=== PATIENT | female | born 1990 | race Caucasian/White ===

== ENCOUNTER → 2017-08-10 10:35 | Outpatient (CLI) | payer BC, SELFPAY ==
[2017-08-10 14:08] LABS: Hematocrit 32.5 % (37-47); Hemoglobin 10.4 g/dl (12.0-15.0); Mean Corpuscular Hgb 27.9 pg (27.0-32.0); Mean Corpuscular Volume 87.1 fL (81-99); Mean Platelet Vol. 10.6 fl (6.2-12.0); Platelet Count 244 K/mm3 (150-450); RBC Distribution Width CV 14.1 % (11.6-14.6); RBC Distribution Width SD 44.4 fl (35.1-43.9); Red Blood Count 3.73 M/mm3 (4.2-5.4); White Blood Count 13.1 K/mm3 (4.4-11.0)
[2017-08-10 14:09] LABS: Scan Indicated on CBC? Y/N NO
[2017-08-10 14:15] LABS: Glucose Challenge Gest 1H 50g 116 mg/dL (70-140)
== END ==
PROVIDERS: Visit Provider Obstetrics & Gynecology
DX: Z34.83 Encounter for supervision of other normal pregnancy, third trimester (principal)
CPT/HCPCS: 36415; 82950; 85027

== ENCOUNTER → 2017-09-30 15:48 | Outpatient (CLI) | payer BC, SELFPAY ==
[2017-09-30 17:45] LABS: Group B Strep DNA By PCR Negative (Negative); Internal Control PASS; Probe Check PASS; Specimen Processing Control PASS
== END ==
PROVIDERS: Visit Provider Obstetrics & Gynecology
DX: Z36.85 Encounter for antenatal screening for Streptococcus B (principal)
CPT/HCPCS: 87081; 87653

== ENCOUNTER 2017-10-09 19:46 | Observation (INO) | payer BC, SELFPAY ==
[2017-10-09 19:46] VITALS: BMI 38.2
[2017-10-09] MEDS: Betamethasone/Betamethasone 30 MG/5 ML Vial 12 MG IM (19:59)
[2017-10-09] MEDS: Lactated Ringers 1,000 ML 50 ML IV (20:00)
[2017-10-09 20:13] LABS: Hematocrit 33.5 % (37-47); Hemoglobin 10.9 g/dl (12.0-15.0); Mean Corp Hgb Conc 32.5 g/gl (32-36); Mean Corpuscular Hgb 28.2 pg (27.0-32.0); Mean Corpuscular Volume 86.8 fL (81-99); Mean Platelet Vol. 10.3 fl (6.2-12.0); Platelet Count 199 K/mm3 (150-450); RBC Distribution Width CV 14.9 % (11.6-14.6); RBC Distribution Width SD 46.5 fl (35.1-43.9); Red Blood Count 3.86 M/mm3 (4.2-5.4); Scan Indicated on CBC? Y/N NO; White Blood Count 14.1 K/mm3 (4.4-11.0)
[2017-10-09] MEDS: 0.9% Saline Lock 10 ML Syringe IV (21:01)
--- NOTE | 2017-10-10 04:54 | PCM.PN.BLA ---
Progress Note LABOR PROGRESS NOTE Contractions persist. Denies leaking of fluid. AVSS GEN - NAD, AAO x 3 FHR 120, moderate variability, + accelerations, no decelerations TOCO 2-3/10 min SVE 5/70/0 posterior and moderate per RN Marlen Victor exam at 0204h A/P: 27yo @ 37wga in latent labor, Cat I FHR -BMZ x 1 given -Given early team, will continue with expectant management at this time -Maternal and statuses reassuring
--- NOTE | 2017-10-10 08:30 | PCM.PN.BLA ---
Progress Note PROGRESS NOTE Relates contractions persist with same moderate intensity as prior. AVSS GEN - NAD, AAO x 3 FHR 125, moderate variability, + accelerations, no decelerations TOCO 1-2/10 min SVE - deferred A/P: 27yo @ 37wga with contractions -Likely latent labor, cannot r/o false labor -s/p BMZ #1, given early term, continue plan for no intervention and will give BMZ #2 this evening if remains unchanged -Maternal and statuses reassuring
--- NOTE | 2017-10-10 19:23 | PCM.PN.BLA ---
Progress Note PROGRESS NOTE Patient reports some pressure. Contractions aren't any closer. AVSS GEN - NAD, AAO x 3 FHR 120, moderate variability, + accelerations, no decelerations SVE 4.5-5/70/-3 TOCO 1-2/10 min A/P: 27yo at 37 weeks gestation with false labor, Cat I FHR -SVE unchanged x 24 hours. Discussed with patient given early term and status reassuring, no indication for pitocin or amniotomy at this time. I recommend discharge to home and patient to return if rupture of membranes or increased frequency/intensity of contractions. Patient may remain at this dilation for several days. -Patient and given opportunity to ask questions and questions answered to their satisfaction -Give betamethasone #2, then d/c home. Follow up in office in 2-3 days.
[2017-10-10] MEDS: Betamethasone/Betamethasone 30 MG/5 ML Vial 12 MG IM (19:25)
--- NOTE | 2017-10-10 19:30 | NURSING ---
Dr. Denver Griffin at nurses station with RN. Plans to discharge patient home. Last dose of celestone to be given per Jimmy MARTIN.
--- NOTE | 2017-10-11 07:49 | PCM.DC.SUM ---
Discharge Date and Diagnosis Date of Admission: 10/09/17 Date of Discharge: 10/10/17 Hospital Course and Treatment Consultations 10/09/17 19:51 Consult: Anesthesia Routine Comment: Reason For Exam: LABOR Operations: None Procedures: None Summary of Care Provided: The patient is a 27 year old F 3 para 1102 admitted at 36 6/7 weeks gestation with contractions at 4-5cm for observation. She was given betamethasone IM and observed with expectant management. Her cervix remained unchanged over the rest of a 24 hour period. She was given a second dose of betamethasone and discharged from triage. Home Medications: Medications to take at Discharge Ferrous Sulfate 324 mg PO 10/09/17 Triamcinolone 0.5% Cream [Kenalog] 10/09/17 Primary Care Physician: Ricky Griffin MD [Primary Care Provider] - Medical Necessity - Tobacco Use Smoking Status: Never smoker Meaningful Use Info Meaningful Use Diagnoses (Choose all that apply): None applicable
== END 2017-10-10 19:50 | disposition home or self-care (01) ==
LOC: WPOUT 19:47 → WP 10-10 15:06
PROVIDERS: Admitting Provider Obstetrics & Gynecology; Family Provider Family Medicine; PCP Family Medicine; Visit Provider Obstetrics & Gynecology
DX: O47.1 False labor at or after 37 completed weeks of gestation (principal); Z3A.37 37 weeks gestation of pregnancy
CPT/HCPCS: 96372 ×2; 59025; 59050; 85027; 86850; 86900; J7120; A4216; J0702

== ENCOUNTER 2017-10-13 15:20 | Outpatient (CLI) | payer BC, SELFPAY ==
[2017-10-13 15:55] VITALS: BMI 37.4
--- NOTE | 2017-10-14 07:57 | OB.TRI.NOTE ---
History of Present Illness Date of Service: 10/13/17 Was patient seen by the physician?: No Reason For Visit: R/O LABOR Date of Service: 10/13/17 Final VALERIA: 10/31/17 Final VALERIA Source: US <20 weeks Gestational age: 37 Weeks and 4 Days History of Present Illness: Irregular contractions, nausea/vomitting Home Medications Medication Instructions Recorded RX: Ferrous Sulfate 324 mg PO DAILY 10/09/17 RX: Triamcinolone 0.5% Cream 10/09/17 [Kenalog] Allergies No Known Allergies Allergy (Verified 10/09/17 19:47) Physical Exam General: Alert, Oriented x3, Cooperative, No apparent distress Cardiovascular: Regular rate, Regular Rhythm Lungs: Clear to auscultation, Normal air movement Abdomen: Soft, Non Tender, Non-Distended, Gravid, Appropriate for Gestational Age Extremities:: No edema Estimated gestational size: Appropriate for gestational size Presentation: Cephalic Cervix Dilation (cm): 5 Station: -2 Effacement (%): 25 NST - FHR Rate Baby A Baseline: 140s Variability:: Moderate Accelerations:: 15 x 15 Decelerations:: None NST Reactive:: Yes FHR Category:: Category I Uterine Activity:: irregular q 6 to 10 minutes Impression/Plan No change in cervical exam over the past 3 days. Will discharge home at this point. If makes more cervical change could consider admission.
== END 2017-10-13 16:40 | disposition home or self-care (01) ==
LOC: WPOUT 15:41 → WP 15:43
PROVIDERS: Visit Provider Obstetrics & Gynecology
DX: O21.9 Vomiting of pregnancy, unspecified (principal); Z3A.37 37 weeks gestation of pregnancy
CPT/HCPCS: 59050; 99218; G0378

== ENCOUNTER 2017-10-17 17:55 | Outpatient (CLI) | payer BC, SELFPAY ==
[2017-10-17 18:02] VITALS: BMI 37.6
[2017-10-17 18:42] LABS: ROM Internal Control Test YES-OK TO RESULT pt. (Internal QC); ROM Patient Test Negative (Negative)
--- NOTE | 2017-10-18 07:04 | OB.TRI.NOTE ---
History of Present Illness Date of Service: 10/17/17 Was patient seen by the physician?: No Reason For Visit: R/O SRM Date of Service: 10/17/17 Final VALERIA: 10/31/17 Final VALERIA Source: US <20 weeks Gestational age: 38 Weeks and 1 Days History of Present Illness: R/O SROM Home Medications Medication Instructions Recorded RX: Ferrous Sulfate 324 mg PO DAILY 10/09/17 Allergies No Known Allergies Allergy (Verified 10/09/17 19:47) Physical Exam General: Alert, Oriented x3, Cooperative, No apparent distress Cardiovascular: Regular rate, Regular Rhythm Lungs: Clear to auscultation, Normal air movement Abdomen: Soft, Non Tender, Non-Distended, Gravid, Appropriate for Gestational Age Extremities:: No edema Estimated gestational size: Appropriate for gestational size Presentation: Cephalic Cervix Dilation (cm): 5 Station: -2 Effacement (%): 70 NST - FHR Rate Baby A Baseline: 140 Variability:: Moderate Accelerations:: 15 x 15 Decelerations:: None NST Reactive:: Yes, Appropriate for gestational age FHR Category:: Category I Uterine Activity:: Irregular Impression/Plan ROM + testing negative. No change in cervix over past week. F/U office.
== END 2017-10-17 19:30 | disposition home or self-care (01) ==
LOC: WPOUT 18:00 → WP 18:01
PROVIDERS: Family Provider Family Medicine; PCP Family Medicine; Visit Provider Obstetrics & Gynecology
DX: Z34.93 Encounter for supervision of normal pregnancy, unspecified, third trimester (principal)
CPT/HCPCS: 59025; 59050; 84112; 99218; G0378

== ENCOUNTER 2017-10-26 06:50 | Inpatient (IN) | payer BC, SELFPAY ==
[2017-10-26] MEDS: Lactated Ringers 1,000 ML 50 ML IV (07:30)
[2017-10-26 07:35] VITALS: BMI 38.4
[2017-10-26] MEDS: Oxytocin 30 units/NS 500 ml 30 UNITS/500 ML IV.SOLN IV (07:47)
[2017-10-26 07:54] LABS: Hemoglobin 11.1 g/dl (12.0-15.0); Mean Corp Hgb Conc 32.6 g/gl (32-36); Mean Corpuscular Volume 85.9 fL (81-99); Mean Platelet Vol. 11.4 fl (6.2-12.0); Platelet Count 176 K/mm3 (150-450); RBC Distribution Width CV 14.1 % (11.6-14.6); RBC Distribution Width SD 43.2 fl (35.1-43.9); Red Blood Count 3.96 M/mm3 (4.2-5.4); White Blood Count 12.5 K/mm3 (4.4-11.0)
[2017-10-26 07:55] LABS: Scan Indicated on CBC? Y/N NO
[2017-10-26] MEDS: Oxytocin 30 units/NS 500 ml 30 UNITS/500 ML IV.SOLN 334 UNITS IV (10:46)
--- NOTE | 2017-10-26 10:54 | PCM.OB.VAG ---
- Problem List (1) Term delivered Status: Acute (2) Term Status: Acute Vaginal Delivery Maternal Presentation: Elective Induction 39w1d ega admitted for elective induction of labor Method of Induction: Pitocin Amniotic Membrane Rupture Type: Artificial Rupture of Membrane time: 0800 Amniotic Fluid Description: Clear Final VALERIA: 11/01/17 Final VALERIA Source: US <20 weeks Gestational age: 39 Weeks and 1 Days Date of Procedure: 10/26/17 Pre-Operative Diagnosis: labor Post-Operative Diagnosis: same Surgery/ Procedure Performed: Spontaneous Vaginal Delivery Type of Anesthesia: None Description of Procedure: Cydney progressed to FD over 2 1/2 hours then pushed for about 15 minutes to deliver a live male with apgars of 8/9. There was a true knot tin the cord. Delayed cord clamping was employed. The cord was then clamped and cut. The placenta was delivered spontanouesly intact with a centrally located 3VC. The uterus contracted well. The vagina, cervix, and perineum were intact. Presentation: Vertex Placental Delivery Description: Spontaneous Placenta Disposition: [facility] Percentage of Placenta Abruption: 0 Cord Vessel Description: 3 Vessels Cord Entanglement: None Estimated Blood Loss: 400cc A gender: Male (1 minute): 8 (5 minute): 9 Episiotomy Description: None Laceration: None Medications given after delivery: IV Pitocin Complications: None
[2017-10-26] MEDS: Ibuprofen 600 MG Tablet PO (11:16)
[2017-10-26] MEDS: Oxytocin 30 units/NS 500 ml 30 UNITS/500 ML IV.SOLN 167 UNITS IV (11:17)
[2017-10-26] MEDS: 0.9% Saline Lock 10 ML Syringe IV (13:05)
[2017-10-26 14:00] VITALS: BP 116/59; PULSE 78; RESP 16; TEMP 36.9
[2017-10-26 15:48] VITALS: BP 107/53; PULSE 73; RESP 16; TEMP 37.1
[2017-10-26 20:00] VITALS: BP 123/67; PULSE 72; RESP 16; TEMP 37.2
[2017-10-26 23:30] VITALS: BP 116/63; PULSE 80; RESP 16; TEMP 37.9
[2017-10-27 04:15] VITALS: BP 116/60; PULSE 84; RESP 16; TEMP 36.7
[2017-10-27 06:11] LABS: Hematocrit 32.3 % (37-47); Hemoglobin 10.5 g/dl (12.0-15.0); Mean Corp Hgb Conc 32.5 g/gl (32-36); Mean Corpuscular Hgb 28.2 pg (27.0-32.0); Mean Corpuscular Volume 86.8 fL (81-99); Platelet Count 160 K/mm3 (150-450); RBC Distribution Width CV 14.3 % (11.6-14.6); RBC Distribution Width SD 43.2 fl (35.1-43.9); Red Blood Count 3.72 M/mm3 (4.2-5.4); White Blood Count 13.2 K/mm3 (4.4-11.0)
[2017-10-27 06:12] LABS: Scan Indicated on CBC? Y/N NO
[2017-10-27 07:28] VITALS: BP 127/70; PULSE 75; RESP 18; TEMP 36.2; O2SAT 96
--- NOTE | 2017-10-27 07:42 | PCM.PN.OB ---
Patient Problems: Active and Suspected Problems Term delivered (Acute) Term (Acute) Subjective: Feeling well. Bleeding light. Breast feeding. Objective: Afeb VSS - Physical Exam General: Alert, Oriented x3, Cooperative, No apparent distress Lungs: Clear to auscultation, Normal air movement Cardiovascular: Regular rate, Regular Rhythm Abdomen: Soft, Non Tender, Non-Distended, - - Fundus firm nontender Extremities: No edema Skin: No rashes Neurological: Neuro grossly intact Psych/Mental Status: Normal Affect Comment: Lochia light Vital Signs Temp Pulse Resp BP Pulse Ox 97.1 F L 75 18 127/70 H 96 10/27/17 07:28 10/27/17 07:28 10/27/17 07:28 10/27/17 07:28 10/27/17 07:28 Oxygen Delivery Method Room Air Weight: 223 lb 15.834 oz Body Mass Index (BMI) 38.4 Intake and Output for Last 24 Hours 10/25/17 10/26/17 10/27/17 23:59 23:59 23:59 Output Total 900 / 900 Balance -900 / -900 Laboratory Tests Past 24 Hrs 10/26/17 10/26/17 10/27/17 07:30 07:30 05:45 WBC 12.5 H 13.2 H RBC 3.96 L 3.72 L Hgb 11.1 L 10.5 L Hct 34.0 L 32.3 L MCV 85.9 86.8 MCH 28.0 28.2 MCHC 32.6 32.5 RDW 14.1 14.3 RDW Differential 43.2 43.2 Plt Count 176 160 MPV 11.4 11.0 Blood Type A POSITIVE Antibody Screen NEGATIVE Medical Necessity - Tobacco Use Smoking Status: Smoker, status unknown Assessment/Plan Active and Suspected Problems Term delivered (Acute) Term (Acute) Doing well on PP day#1. Considering discharge home today. Home going instructions and warnings given.
--- NOTE | 2017-10-27 07:47 | DCINST_ITS ---
Discharge Diet: No Restrictions Discharge Activity: Return to Normal Activity, May Drive, May Shower Return to work on:: 12/13/17 May shower in (days): 0 May resume sexual activity in: 4-6 weeks Call your doctor if your incision/area has: Sudden Increased Bleeding, Increased Pain/ Swelling, Foul Smelling Discharge Call your doctor if you observe: Fever of 101 or Higher, Inability to urinate, Inability to have a bowel movement, Using more than one pad per hour, Shortness of breath, Chest pain, Calf discomfort, Uncontrolled pain Cleanse incision/area with: Soap & Water Additional Instructions: If you experience any of the following, contact your healthcare provider. * Bleeding that soaks a pad every hour for 2 hours * Fever 100.4 or higher * Unrelieved incision or abdominal pain * Swelling, redness, discharge or bleeding from your incision or episiotomy site * Your incision begins to separate * Problems urinating (including inability to urinate or burning while urinating) . * Visual changes * Severe headache * Flu-like symptoms * Pain or redness in one of both of your breasts * Pain, warmth, tenderness or swelling in your legs, especially the calf area * Frequent nausea and vomiting * Symptoms of depression or anxiety If you experience any of the following, call 911 or go to the nearest Emergency Room. * Chest pain * Problems breathing * Seizure activity * Partial or complete paralysis of a body part, slurred speech, weakness or drooping of the face, or a sudden inability to walk or hold your balance Allergies/Adverse Reactions: Allergies No Known Allergies Allergy (Verified 10/09/17 19:47) Medications to take at Discharge Ferrous Sulfate 324 mg PO DAILY 10/09/17 Ibuprofen [Ibu] 600 mg PO Q6H PRN PRN #30 tab 10/27/17 The following prescriptions were given: Ibuprofen [Ibu] 600 mg PO Q6H PRN PRN #30 tab PRN Reason: pain or cramping Please Follow Up With: Kilo Garcia MD When: 6 weeks Primary Care Physician: Ricky Griffin MD [Primary Care Provider] - Proposed Discharge Date: 10/27/17
[2017-10-27 14:15] VITALS: BP 112/58; PULSE 82; RESP 16; TEMP 36.8
[2017-10-27 19:30] VITALS: BP 112/64; PULSE 82; RESP 18; TEMP 36.6; O2SAT 98
[2017-10-28 02:15] VITALS: BP 116/68; PULSE 69; RESP 18; TEMP 36.6; O2SAT 98
--- NOTE | 2017-10-28 08:16 | PCM.DC.SUM ---
Discharge Date and Diagnosis - Problem List Patient Problems: Active and Suspected Problems Term delivered (Acute) Term (Acute) Date of Admission: 10/26/17 Date of Discharge: 10/28/17 - Primary Discharge Diagnosis Active and Suspected Problems Term delivered (Acute) Term (Acute) Hospital Course and Treatment Consultations 10/26/17 07:39 Consult: Anesthesia Routine Comment: Reason For Exam: LABOR Operations: None Procedures: - - Pitocin induction, Summary of Care Provided: The patient is a 27 year old F [admitted for elective induction of labor at 39w2d ega. Pitocin induction resulted in spontaneous vaginal delivery of a live male without complication. Post course unremarkable. Was discharged on PP day#2.] Discharge Diet: No Restrictions Discharge Activity: Return to Normal Activity, May Drive, May Shower Return to work on:: 12/13/17 May shower in (days): 0 May resume sexual activity in: 4-6 weeks Call your doctor if your incision/area has: Sudden Increased Bleeding, Increased Pain/ Swelling, Foul Smelling Discharge Call your doctor if you observe: Fever of 101 or Higher, Inability to urinate, Inability to have a bowel movement, Using more than one pad per hour, Shortness of breath, Chest pain, Calf discomfort, Uncontrolled pain Cleanse incision/area with: Soap & Water Home Medications: Medications to take at Discharge Ferrous Sulfate 324 mg PO DAILY 10/09/17 Ibuprofen [Ibu] 600 mg PO Q6H PRN PRN #30 tab 10/27/17 Following Prescrptions Were Given to Patient: Ibuprofen [Ibu] 600 mg PO Q6H PRN PRN #30 tab PRN Reason: pain or cramping Primary Care Physician: Ricky Griffin MD [Primary Care Provider] - Please Follow Up With: Kilo Garcia MD When: 6 weeks Disposition: Home Minutes spent on discharge:: 15 Patient Condition:: Good Medical Necessity - Tobacco Use Smoking Status: Smoker, status unknown Meaningful Use Info Meaningful Use Diagnoses (Choose all that apply): None applicable
--- NOTE | 2017-10-28 08:19 | PCM.PN.OB ---
Patient Problems: Active and Suspected Problems Term delivered (Acute) Term (Acute) Subjective: Doing well no specific complaints. Breast feeding. Bleeding light. Objective: Afeb VSS - Physical Exam General: Alert, Oriented x3, Cooperative, No apparent distress Lungs: Clear to auscultation, Normal air movement Cardiovascular: Regular rate, Regular Rhythm Abdomen: Soft, Non Tender, Non-Distended, - - Fundus firm nontender Extremities: No edema, No Calf Tenderness Skin: No rashes Neurological: Neuro grossly intact Psych/Mental Status: Normal Affect Comment: lochia light Vital Signs Temp Pulse Resp BP Pulse Ox 97.8 F 69 18 116/68 98 10/28/17 02:15 10/28/17 02:15 10/28/17 02:15 10/28/17 02:15 10/28/17 02:15 Oxygen Delivery Method Room Air Weight: 223 lb 15.834 oz Body Mass Index (BMI) 38.4 Intake and Output for Last 24 Hours 10/26/17 10/27/17 10/28/17 23:59 23:59 23:59 Output Total 900 / 900 Balance -900 / -900 Medical Necessity - Tobacco Use Smoking Status: Smoker, status unknown Assessment/Plan Active and Suspected Problems Term delivered (Acute) Term (Acute) Discharged today. May stay in house as border if baby held for elevated bilirubin levels. Home going instructions and warnings given.
[2017-10-28 09:45] VITALS: BP 124/70; PULSE 72; RESP 16; TEMP 36.4; O2SAT 97
[2017-10-28 15:42] VITALS: BP 134/89; PULSE 88; RESP 18; TEMP 36.9; O2SAT 98
== END 2017-10-28 14:55 | disposition home or self-care (01) | DRG 775 ==
PROVIDERS: Admitting Provider Obstetrics & Gynecology; Family Provider Family Medicine; PCP Family Medicine; Visit Provider Obstetrics & Gynecology
DX: O75.89 Other specified complications of labor and delivery (principal); Z37.0 Single live birth; Z3A.39 39 weeks gestation of pregnancy
CPT/HCPCS: 59025; 59050; 85027; 86850; 86900; 99218; J7120; A4216; G0378

== ENCOUNTER → 2018-03-17 14:42 | Outpatient (CLI) | payer BC, SELFPAY ==
[2018-03-25 08:33] LABS: HPV HC, High Risk Negative (Negative)
[2018-03-25 08:34] LABS: HPV Reflexed? NOT INDICATED
== END ==
PROVIDERS: Visit Provider Obstetrics & Gynecology
DX: Z12.4 Encounter for screening for malignant neoplasm of cervix (principal)
CPT/HCPCS: 88175; G0145

== ENCOUNTER 2018-05-27 07:28 | Emergency (ER) | payer BC, SELFPAY ==
[2018-05-27 07:29] VITALS: BP 156/96; PULSE 73; RESP 18; TEMP 36.4; O2SAT 99; BMI 35.2
--- NOTE | 2018-05-27 07:46 | CT_ITS ---
STUDY: CT ABDOMEN AND PELVIS WITHOUT CONTRAST REASON FOR EXAM: Female, 28 years old. Vomiting and right flank pain. RADIATION DOSAGE (If Supplied By Facility): CTDIvol = ( 17.28 ) mGy, DLP = ( 863.17 ) mGycm TECHNIQUE: Transaxial images were obtained from the dome of the diaphragm to the symphysis pubis without oral contrast, and without intravenous contrast. Sagittal and coronal images were reconstructed. Individualized dose optimization techniques were used for this CT. COMPARISON: None. FINDINGS: The visualized lung bases are unremarkable. The visualized portions of the heart are within normal limits. Normal liver. Normal gallbladder and extrahepatic biliary system. Normal spleen. Normal pancreas. Normal bilateral adrenal glands. There is a 6.8 mm nonobstructive calculus in the lower pole calyx of the right kidney I suspect a 6.5 mm calculus in the distal portion of the left ureter just proximal to the ureterovesical junction. There is a 6 mm nonobstructive calculus in the lower pole calyx of the left kidney. There is a small hiatal hernia. Normal small intestine. Normal colon. The appendix is visualized and appears normal. Normal abdominal aorta. Normal inferior vena cava. There is borderline retroperitoneal lymphadenopathy with enlarged nodes no greater than 10mm in the short axis diameter. Normal urinary bladder. Normal abdominal wall. Normal osseous structures. CT/Abdomen/Pelvis without Cont IMPRESSION: There is a 6 mm nonobstructive calculus in the lower pole calyx of the left kidney. I suspect a 6.5 mm calculus in the distal portion of the right ureter just proximal to the ureterovesical junction. Electronically Signed: Henry Deshpande MD at 8:50 EST Tel [phone], Service support ,
--- NOTE | 2018-05-27 07:47 | ED.VISSUMM ---
- ER Visit Summary Date of Service: 05/27/18 Chief Complaint: Right flank pain History of Present Illness: The patient is a 28 F past medical history. No prior abdominal surgeries. Had a vaginal delivery about 6 months ago. Patient states that this morning about 0 5:45 AM she had sudden onset of right flank pain that got worse. She had 2 episodes of nausea and vomiting. No diarrhea. No fever. No dysuria. No hematuria. She had this 1 other time when she was but did not have it worked up at that time. She has no known history of gallbladder disease. No known history of prior kidney stones. She is been feeling fine the last several days. Currently she states the pain is much better than it was at its worse. And she is not nauseated currently. Physical Examination: Well-appearing young female. Coming by her and 3 children. Vital signs are stable. Afebrile. H EENT exam unremarkable. Neck nontender no lymphadenopathy. Lungs clear to auscultation bilaterally. Heart regular rhythm no murmur. Abdomen is soft. Nontender. Nondistended. Normal bowel sounds. No peritoneal signs. Both the right upper right lower quadrants are unremarkable. There is no hernias or masses. No McBurney's point tenderness. No Doe sign. Currently her back and right flank are nontender. There is no CVA tenderness. She points to her right upper quadrant right flank area where the pain was. She is moving all 4 extremities. They are neurovascularly intact. Calves are nontender without edema. Neurologically she is awake and alert with no focal motor deficits. Test Results: CBC shows no acute abnormality. White count of 9. Hemoglobin 12. Chemistries unremarkable normal BUN and creatinine of 0.6. UA normal. No white cells no red cells on the microscopic sample. No signs of infection. CT flank without contrast shows bilateral renal stones. And a distal right UVJ 6.5 mm ureteral stone. No obstruction. I discussed all his test results with the patient and her family. Emergency Department Course and Treatment: Currently the patient wants no medications for pain or nausea. Repeat exam patient is doing well 9:24 a.m.will be discharged home. Treatment Plan: Strain urine. Plenty of fluids. Toradol and [place] for pain as needed. Disposition: Discharge Impression: Acute right flank pain secondary to a distal right UVJ 6.5 mm stone This note was generated with [employer] dictation software. It may contain incorrect words, spelling, and punctuation that were not noted in review of the chart prior to signing ED Disposition - Plan for ED Patient: Chief Complaint: Flank Pain Instructions: ED Flank Pain Uncertain Cause Referrals: Diana Canela MD [Primary Care Provider] -
--- NOTE | 2018-05-27 07:50 | ED.DCSUM_ITS ---
- ER Visit Summary Date of Service: 05/27/18 Chief Complaint: Right flank pain History of Present Illness: The patient is a 28 F past medical history. No prior abdominal surgeries. Had a vaginal delivery about 6 months ago. Patient states that this morning about 0 5:45 AM she had sudden onset of right flank pain that got worse. She had 2 episodes of nausea and vomiting. No diarrhea. No fever. No dysuria. No hematuria. She had this 1 other time when she was but did not have it worked up at that time. She has no known history of gallbladder disease. No known history of prior kidney stones. She is been feeling fine the last several days. Currently she states the pain is much reynaldo r than it was at its worse. And she is not nauseated currently. Physical Examination: Well-appearing young female. Coming by her and 3 children. Vital signs are stable. Afebrile. H EENT exam unremarkable. Neck nontender no lymphadenopathy. Lungs clear to auscultation bilaterally. Heart regular rhythm no murmur. Abdomen is soft. Nontender. Nondistended. Normal bowel sounds. No peritoneal signs. Both the right upper right lower quadrants are unremarkable. There is no hernias or masses. No McBurney's point tenderness. No Doe sign. Currently her back and right flank are nontender. There is no CVA tenderness. She points to her right upper quadrant right flank area where the pain was. She is moving all 4 extremities. They are neurovascularly intact. Calves are nontender without edema. Neurologically she is awake and alert with no focal motor deficits. Test Results: CBC shows no acute abnormality. White count of 9. Hemoglobin 12. Chemistries unremarkable normal BUN and creatinine of 0.6. UA normal. No white cells no red cells on the microscopic sample. No signs of infection. CT flank without contrast shows bilateral renal stones. And a distal right UVJ 6.5 mm ureteral stone. No obstruction. I discussed all his test results with the patient and her family. Emergency Department Course and Treatment: Currently the patient wants no medications for pain or nausea. Repeat exam patient is doing well 9:24 a.m.will be discharged home. Treatment Plan: Strain urine. Plenty of fluids. Toradol and [place] for pain as needed. Disposition: Discharge Impression: Acute right flank pain secondary to a distal right UVJ 6.5 mm stone This note was generated with [employer] dictation software. It may contain incorrect words, spelling, and punctuation that were not noted in review of the chart prior to signing ED Disposition - Plan for ED Patient: Chief Complaint: Flank Pain Instructions: ED Flank Pain Uncertain Cause Referrals: Diana Canela MD [Primary Care Provider] -
--- NOTE | 2018-05-27 07:50 | ED.DEP ---
ED Disposition - Plan for ED Patient: Disposition: Home or Assisted Living Chief Complaint: Flank Pain Instructions: ED Stone Renal W Colic Prescriptions: Hydrocodone/Acetaminophen [[place] 7.5-325 Tablet] 1 ea PO Q6H PRN PRN #10 tab PRN Reason: Pain Ketorolac [Toradol] 10 mg PO Q4H #10 tab Referrals: Diana Canela MD [Primary Care Provider] - As Needed Reza Danielle MD [STAFF PHYSICIAN] - As Needed Additional Instructions: Plenty of fluids and rest. Toradol which is a strong anti-inflammatory for pain as needed. [place] which is a narcotic pain medication for pain as needed. Strain your urine for passed stone. Follow-up with the urologist if needed.
[2018-05-27 08:05] LABS: Color, Urine Yellow (Yellow); Glucose, Dipstick Normal (Normal); Ketone-Dipstick Negative (Negative); Leukocyte Esterase-Dipstick 25 /ul (Negative); Nitrite-Dipstick Negative (Negative); Occult Blood-Urine 50 /ul (Negative); Protein-Dipstick 15 mg/dl (Negative); Specific Gravity, Urine 1.015 (1.002-1.030); Urine Bilirubin Dipstick Negative (Negative); Urine Clarity Sl. Cloudy (Clear); Urine Urobilinogen Normal (Normal)
[2018-05-27 08:11] LABS: Mucous, Urine 1+ /hpf (<or=2+); Red Blood Cells-Urine 0-5 SEEN /hpf (0-5); Squamous Epithelial Cells - UA 0-5 SEEN /hpf (5-10); White Blood Cells 0-5 SEEN /hpf (0-5)
[2018-05-27 08:12] LABS: Bacteria 1+ /hpf (None Seen)
[2018-05-27 08:17] LABS: Absolute Lymphocyte Count 2.06 X10^3/ul (0.83-4.51); Absolute Neutrophil Count 6.9 X10^3/uL (2.0-7.7); Basophil# 0.01 X10^3/uL; Basophil% 0.1 % (0-1); Hematocrit 37.6 % (37-47); Hemoglobin 12.4 g/dl (12.0-15.0); Lymphocyte # 2.06 X10^3/ul (4.0); Mean Corpuscular Hgb 28.1 pg (27.0-32.0); Mean Corpuscular Volume 85.3 fL (81-99); Mean Platelet Vol. 9.7 fl (6.2-12.0); Monocyte% 7.1 % (0-10); Neutrophil # 6.92 X10^3/uL (2.7-7.7); Neutrophil % 70.6 % (47-70); POSITIVE COUNT NO; POSITIVE DIFFERENTIAL NO; POSITIVE MORPHOLOGY NO; Platelet Count 254 K/mm3 (150-450); RBC Distribution Width CV 13.3 % (11.6-14.6); RBC Distribution Width SD 41.7 fl (35.1-43.9); Red Blood Count 4.41 M/mm3 (4.2-5.4); White Blood Count 9.8 K/mm3 (4.4-11.0)
[2018-05-27 08:28] LABS: Anion Gap 8 (5-15); BUN 13 mg/dL (7-18); BUN/Creat Ratio 20.7 RATIO (10-20); Calcium,Total 8.8 mg/dL (8.5-10.1); Chloride 107 mmol/L (98-107); Creatinine, Serum 0.63 mg/dL (0.55-1.02); EST Glomerular Filtration Rate 120 mL/min (>60); Est Glom Filt Rate - Afr Amer 145 mL/min (>60); Glucose 120 mg/dL (74-106); Potassium 4.6 mmol/L (3.5-5.1); Sodium Level 140 mmol/L (136-145)
[2018-05-27 09:42] VITALS: BP 110/87; PULSE 69; RESP 16; O2SAT 98
--- NOTE | 2018-05-27 09:42 | ED.RN ---
REVIEWED D/C INSTRUCTIONS, FOLLOW UP CARE, PRESCRIPTIONS, AND S/S THAT WOULD WARRANT A RETURN TO THE ED WITH PT. PT VERBALIZED AN UNDERSTANDING AND DENIES FURTHER QUESTIONS FOR THIS RN. PT SKIN P/W/D, RESP EVEN AND UNLABORED, PT A&O X 3, NO DISTRESS NOTED. PT AMBULATED OUT OF ED, GAIT STEADY.
== END 2018-05-27 09:44 | disposition home or self-care (01) ==
PROVIDERS: Emergency Provider Emergency Medicine; Family Provider Family Medicine; PCP Family Medicine
DX: N20.1 Calculus of ureter (principal)
CPT/HCPCS: 74176; 80048; 81001; 85025; 99283; A4216

== ENCOUNTER 2018-06-28 22:50 | Emergency (ER) | payer BC, SELFPAY ==
[2018-06-28 22:51] VITALS: BP 151/88; PULSE 73; RESP 18; TEMP 36.8; O2SAT 98; BMI 37.4
[2018-06-28 23:36] LABS: Pregnancy, Serum, hCG Quali. NEGATIVE Negative (0-9 Nonpreg)
[2018-06-29] VITALS: BP 140/84; PULSE 73; RESP 16; O2SAT 98
--- NOTE | 2018-06-29 00:09 | CT_ITS ---
HISTORY: RT SIDE ABDOM PAIN TECHNIQUE: Helically acquired images were obtained of the abdomen and pelvis without oral or IV contrast as per renal stone protocol. A radiation dose optimization technique was used for this scan. IV Contrast dosage and agent: None. Oral contrast: None. COMPARISON: 05-27-2018 FINDINGS: Mild ptosis of the right kidney which appears related to fatty liver and hepatomegaly. Moderate right hydronephrosis and moderate right hydroureter with an 8 x 4 mm obstructing stone at the right UVJ. 7 x 4 mm calyceal stone at the lower pole of the right kidney and 6 mm stone at the lower pole of the left kidney. No hydronephrosis or hydroureter on the left. The adrenal glands are not enlarged. Lower thorax: Clear. No pleural effusion. Enlarged, fatty liver. Negative gallbladder. No biliary dilatation. The spleen is upper normal in size. Normal pancreas. Abdominal aorta is normal in caliber. No ascites or retroperitoneal lymphadenopathy. GI tract: No obstruction. Large fecal residue within the right colon. Pelvis: Retroverted uterus which is normal in size. Urinary bladder is poorly distended. As above, 8 x 4 mm right UVJ stone. Pelvic phleboliths. Bones: No acute osseous abnormality. Ventral abdominal Wall: Tiny fat-containing umbilical hernia. CT/Abdomen/Pelvis without Cont IMPRESSION: 1. 8 x 4 mm right UVJ stone with moderate hydronephrosis and hydroureter proximal to the stone. 2. Bilateral intrarenal stones. No hydronephrosis on the left. 3. Enlarged, fatty liver. Individualized dose optimization techniques were used for this CT. at 0127 Reported and signed by: Mariano Dent MD Electronically Signed: Mariano Dent, at 1:26 EST Tel , Service support ,
--- NOTE | 2018-06-29 00:10 | ED.VISSUMM ---
- ER Visit Summary Date of Service: 06/29/18 Chief Complaint: [] Right flank pain and suspected kidney stone History of Present Illness: The patient is a 28 F complaining of right flank pain that started 3 hours ago sudden onset continuous stabbing pain. She had a kidney stone that was 6.5 cm in May of last year. She did not see urology. She passed on her own. That was her only previous kidney stone. She has had 10 episodes of vomiting. Denies Physical Examination: Vital signs reviewed General: Well-nourished well-developed Head: Normocephalic atraumatic Eyes: Pupils equal round and reactive to light extraocular movements intact ENT: TMs clear no hemotympanum no trauma Neck: Nontender full range of motion Cardiovascular: Regular rate rhythm no murmurs normal S1-S2 Respiratory: No distress clear to auscultation bilaterally chest nontender Abdomen: Soft nontender nondistended normal bowel sounds no masses Back: Nontender no CVA tenderness. Mild tenderness right flank Extremities: Nontender active range of motion ?4 extremities no trauma Skin: Normal color no trauma Neuro alert oriented cranial nerves II through XII intact normal strength sensation reflexes Test Results: [] Emergency Department Course and Treatment: [] IV established and given Toradol, morphine, IV fluids, Zofran. Lab work and CT abdomen pelvis obtained Treatment Plan: [] Disposition: [] Impression: [] This note was generated with [employer] dictation software. It may contain incorrect words, spelling, and punctuation that were not noted in review of the chart prior to signing ED Disposition - Plan for ED Patient: Chief Complaint: Flank Pain Referrals: Diana Canela MD [Primary Care Provider] -
[2018-06-29] MEDS: 0.9% Normal Saline 1,000 ML 250 ML IV (00:19)
[2018-06-29] MEDS: Ketorolac 30 MG/ML Syringe IV (00:20)
[2018-06-29] MEDS: Ondansetron 4 MG/2 ML Vial IV (00:20)
[2018-06-29] MEDS: morphine 8 MG/ML Syringe IV (00:21)
[2018-06-29 00:26] LABS: Absolute Neutrophil Count 9.3 X10^3/uL (2.0-7.7); Basophil# 0.02 X10^3/uL; Basophil% 0.2 % (0-1); Eosinophil# 0.13 X10^3/uL; Hematocrit 37.8 % (37-47); Hemoglobin 12.4 g/dl (12.0-15.0); Lymphocyte % 18.2 % (19-41); Mean Corp Hgb Conc 32.8 g/gl (32-36); Mean Corpuscular Volume 85.3 fL (81-99); Mean Platelet Vol. 10.3 fl (6.2-12.0); Monocyte# 0.89 X10^3/uL; Neutrophil # 9.29 X10^3/uL (2.7-7.7); Neutrophil % 73.4 % (47-70); Platelet Count 259 K/mm3 (150-450); RBC Distribution Width SD 39.8 fl (35.1-43.9); Red Blood Count 4.43 M/mm3 (4.2-5.4); White Blood Count 12.7 K/mm3 (4.4-11.0)
[2018-06-29 00:27] LABS: POSITIVE COUNT NO; POSITIVE DIFFERENTIAL NO; POSITIVE MORPHOLOGY NO
[2018-06-29 00:31] LABS: Anion Gap 6 (5-15); BUN 15 mg/dL (7-18); BUN/Creat Ratio 18.5 RATIO (10-20); Calcium,Total 8.7 mg/dL (8.5-10.1); Chloride 108 mmol/L (98-107); Creatinine, Serum 0.81 mg/dL (0.55-1.02); EST Glomerular Filtration Rate 89 mL/min (>60); Est Glom Filt Rate - Afr Amer 108 mL/min (>60); Estimated Creatinine Clearance 89.29 ml/min; Glucose 113 mg/dL (74-106); Potassium 4.2 mmol/L (3.5-5.1); Sodium Level 139 mmol/L (136-145)
--- NOTE | 2018-06-29 02:17 | ED.RN ---
SEE DOWNTIME DOCUMENTATION FROM [id number]
[2018-06-29 02:35] LABS: Mucous, Urine 0 SEEN /hpf (<or=2+)
[2018-06-29 02:36] LABS: Color, Urine Yellow (Yellow); Glucose, Dipstick Normal (Normal); Ketone-Dipstick Negative (Negative); Leukocyte Esterase-Dipstick 500 /ul (Negative); Nitrite-Dipstick Negative (Negative); Occult Blood-Urine 25 /ul (Negative); Protein-Dipstick 15 mg/dl (Negative); Urine Bilirubin Dipstick Negative (Negative); Urine Clarity Sl. Cloudy (Clear); Urine Urobilinogen Normal (Normal)
[2018-06-29 02:40] LABS: Red Blood Cells-Urine 0-5 SEEN /hpf (0-5); White Blood Cells 5-10 SEEN /hpf (0-5)
[2018-06-29 02:41] LABS: Bacteria 1+ /hpf (None Seen); Squamous Epithelial Cells - UA 5-10 SEEN /hpf (5-10)
--- OUTSIDE RECORDS SUMMARY | 2018-08-31 00:02 | XMS RPT_ITS ---
:1990 Author Organization OHIP Support Name Relationship Address Phone GARCÍA BURROUGHS Unavailable [address] + [place] [address] [employer] Unavailable [address] + [place] [address] BROLEOLAOLCici GARCÍA Unavailable [address] + [place] [address] [employer] Unavailable [address] + [place] [address] BRODWOLF, GARCÍA Unavailable [address] + [place] [address] [employer] Unavailable [address] + [place] [address] BRODWOLF, GARCÍA Unavailable [address] + [place] [address] [employer] Unavailable [address] + [place] [address] BRODWOLF, GARCÍA Unavailable [address] + [place] [address] [employer] Unavailable [address] + [place] [address] BRODWOLF, GARCÍA Unavailable [address] + [place] [address] [employer] Unavailable [address] + [place] [address] BRODWOLF, GARCÍA Unavailable [address] + [place] [address] [employer] Unavailable [address] + [place] [address] BRODWOLF GARCÍA Unavailable [address] + [place] [address] [employer] Unavailable [address] + [place] [address] BRODWOLF, GARCÍA Unavailable [address] + [place] [address] [employer] Unavailable [address] + [place] [address] BRODWOLF, GARCÍA Unavailable [address] + [place] [address] [employer] Unavailable [address] + [place] [address] Care Team Providers Name Role Phone Robe Botello Attending Unavailable Miedel, [place] [facility] Unavailable Miedel, [place] [facility] Unavailable Santiago Sauceda Attending Unavailable Seals, Kilo Attending Unavailable Seals, Kilo Attending Unavailable Goff-Elias, Sienna Attending Unavailable Elias, [place] [facility] Unavailable Goff-Elias, Sienna Admitting Unavailable Seals, Kilo Attending Unavailable Seals, Kilo Referring Unavailable Seals, Kilo Attending Unavailable Elias, Ricky Primary Care Unavailable Seals, Kilo Admitting Unavailable Seals, Kilo Attending Unavailable Elias, Ricky Primary Care Unavailable Seals, Kilo Admitting Unavailable Seals, Kilo Attending Unavailable Seals, Kilo Referring Unavailable Elias, Ricky Primary Care Unavailable Seals, Kilo Attending Unavailable PROBLEMS PROBLEMS DATE TYPE CONDITION / CODE ATTENDING STATUS SOURCE 05/27/2018 Unknown N20.0 - Calculus of Robe Botello kidney / Community N20.0(ICD-10) Hospital Repository 09/30/2017 Unknown Z36.85 - Encounter Kilo Garcia for Community screening for Hospital Streptococcus B / Repository Z36.85(ICD-10) 08/10/2017 Unknown Z34.83 - Encounter Kilo Garcia for supervision of Community other normal Hospital , third Repository trimester / Z34.83(ICD-10) PROCEDURES PROCEDURES No Procedure Records FoundRESULTS RESULTS EMERGENCY DEPARTMENT Observed: 06/29/2018 Status: F Source: [place] SUMMARY 5:44 AM [facility] REPOSITORY [facility] Medical Records Department [address] [place] [address] Emergency Department Summary 06/29/18 0010 MR#: [id number] Acct: [id number] Name: VEL BURROUGHS Rep #: [id number] : 1990 28 From: Santiago Sauceda MD PCP: Diana Canela MD Status: DEP ER - ER Visit Summary Date of Service: 06/29/18 Chief Complaint: [] Right flank pain and suspected kidney stone History of Present Illness: The patient is a 28 F complaining of right flank pain that started 3 hours ago sudden onset continuous stabbing pain. She had a kidney stone that was 6.5 cm in May of last year. She did not see urology. She passed on her own. That was her only previous kidney stone. She has had 10 episodes of vomiting. Denies Physical Examination: Vital signs reviewed General: Well-nourished well-developed Head: Normocephalic atraumatic Eyes: Pupils equal round and reactive to light extraocular movements intact ENT: TMs clear no hemotympanum no trauma Neck: Nontender full range of motion Cardiovascular: Regular rate rhythm no murmurs normal S1-S2 Respiratory: No distress clear to auscultation bilaterally chest nontender Abdomen: Soft nontender nondistended normal bowel sounds no masses Back: Nontender no CVA tenderness. Mild tenderness right flank Extremities: Nontender active range of motion 4 extremities no trauma Skin: Normal color no trauma Neuro alert oriented cranial nerves II through XII intact normal strength sensation reflexes Test Results: [] Emergency Department Course and Treatment: [] IV established and given Toradol, morphine, IV fluids, Zofran. Lab work and CT abdomen pelvis obtained Treatment Plan: [] Disposition: [] Impression: [] This note was generated with Speed Dating by Chantilly Lace dictation software. It may contain incorrect words, spelling, and punctuation that were not noted in review of the chart prior to signing ED Disposition - Plan for ED Patient: Chief Complaint: Flank Pain Referrals: Diana Canela MD [Primary Care Provider] - What to do if you have Problems For any increased pain, shortness of breath, bleeding, nausea or vomiting, chest pain, or any unexpected problems, contact your Primary Care Provider. Call [facility] ([phone]) or report to the closest Emergency Room. Call 911 if necessary. 06/29/18 0544 <Electronically signed by Santiago Sauceda MD> Date Santiago Sauceda MD Cosigner Signature (If Indicated): Date CC: Diana Canela MD URINALYSIS, COMPLETE Collected: 06/29/2018 Status: F Source: [place] 1:04 [facility] [place] [facility] Order Comment: RESULT(S) PREVIOUSLY REPORTED ON MANUAL REQUISITION DURING DOWNTIME. How was Urine Obtained? CLEAN CATCH TYPE CODE TESTS RESULT OUT OF RANGE REFERENCE UNITS LAB L400.3000 Yellow COLOR Normal Yellow LAB L400.3050 Clear Normal CLARITY Sl. Cloudy LAB L400.3200 Normal mg/dl Normal GLUCOSE, UR Normal LAB L400.3300 Negative mg/dL Normal BILIRUBIN URINE Negative LAB L400.3400 Negative mg/dl Normal KETONE UR Negative LAB L400.3465 1.002-1.030 Normal SP.GR. DIPSTX 1.010 LAB L400.3550 5.0 - 8.0 pH UR Normal 7.0 LAB L400.3600 Negative mg/dl High PROT 15 DIPSTX LAB L400.3700 Normal mg/dl Normal UROBILI Normal LAB L400.3750 Negative Normal NITRITE UR Negative LAB L400.3780 Negative /ul High 25 OCCULT BLOOD-UR LAB L400.3800 Negative /ul High LEUK ESTERASE 500 LAB L400.4050 0-5 /hpf WBC Normal 5-10 SEEN LAB L400.4100 0-5 /hpf Normal RBC-UA 0-5 SEEN LAB L400.4150 5-10 /hpf SQUAM Normal EPI 5-10 SEEN LAB L400.4300 None Seen /hpf 1+ Normal BACTERIA LAB L400.4350 <or=2+ /hpf 0 Normal MUCUS, URINE SEEN Performed By: #### L400.0001 #### [facility] [address] [place], [address] ABDOMEN/PELVIS WITHOUT Observed: 06/29/2018 Status: F Source: [place] CONT 12:10 AM [facility] RE[facility]IT[facility] Imaging Services [address] [place] [address] Abdomen/Pelvis without Cont MR#: [id number] Acct: [id number] Name: VEL BURROUGHS Rep #: [id number] : 1990 F 28 From: Mariano Dent MD PCP: Diana Canela MD Status: REG ER Study: Abdomen/Pelvis without Cont Date of Exam: 06/29/18 Exam# [id number] Ordering Dr: Santiago Sauceda MD HISTORY: RT SIDE ABDOM PAIN TECHNIQUE: Helically acquired images were obtained of the abdomen and pelvis without oral or IV contrast as per renal stone protocol. A radiation dose optimization technique was used for this scan. IV Contrast dosage and agent: None. Oral contrast: None. COMPARISON: 05-27-2018 FINDINGS: Mild ptosis of the right kidney which appears related to fatty liver and hepatomegaly. Moderate right hydronephrosis and moderate right hydroureter with an 8 x 4 mm obstructing stone at the right UVJ. 7 x 4 mm calyceal stone at the lower pole of the right kidney and 6 mm stone at the lower pole of the left kidney. No hydronephrosis or hydroureter on the left. The adrenal glands are not enlarged. Lower thorax: Clear. No pleural effusion. Enlarged, fatty liver. Negative gallbladder. No biliary dilatation. The spleen is upper normal in size. Normal pancreas. Abdominal aorta is normal in caliber. No ascites or retroperitoneal lymphadenopathy. GI tract: No obstruction. Large fecal residue within the right colon. Pelvis: Retroverted uterus which is normal in size. Urinary bladder is poorly distended. As above, 8 x 4 mm right UVJ stone. Pelvic phleboliths. Bones: No acute osseous abnormality. Ventral abdominal Wall: Tiny fat-containing umbilical hernia. CT/Abdomen/Pelvis without Cont IMPRESSION: 1. 8 x 4 mm right UVJ stone with moderate hydronephrosis and hydroureter proximal to the stone. 2. Bilateral intrarenal stones. No hydronephrosis on the left. 3. Enlarged, fatty liver. Individualized dose optimization techniques were used for this CT. at 0127 Reported and signed by: Mariano Dent MD Electronically Signed: Mariano Dent, at 1:26 EST Tel , Service support , CC: Diana Canela MD; Santiago Sauceda MD Sfdc Solution Architect: Signed ,SERUM,HCG QUALI. Collected: Status: F Source: [place] 06/28/2018 11:00 PM [facility] REPOSITORY TYPE CODE TESTS RESULT OUT OF REFERENCE UNITS RANGE LAB L700.7000 0-9 Nonpreg Negative Normal HCGSQUAL NEGATIVE LAB L700.6700 =>Qualitative mIU/mL Normal HCG Qual < 1 triggr Performed By: #### L700.6800 #### [facility] [address] [place], [address] CBC W/DIFF, AUTOMATED Collected: 06/28/2018 Status: F Source: [place] 11:00 PM [facility] REPOSIT[facility] TYPE CODE TESTS RESULT OUT OF RANGE REFERENCE UNITS LAB L100.1000 4.4-11.0 K/mm3 High WBC 12.7 LAB L100.1200 4.2-5.4 M/mm3 Normal RBC 4.43 LAB L100.1300 12.0-15.0 g/dl Normal HGB 12.4 LAB L100.1400 37-47 % Normal HCT 37.8 LAB L100.1500 81-99 fL Normal MCV 85.3 LAB L100.1600 27.0-32.0 pg Normal MCH 28.0 LAB L100.1700 32-36 g/gl Normal MCHC 32.8 LAB L100.1810 11.6-14.6 % Normal RDW CV 13.0 LAB L100.1820 35.1-43.9 fl Normal RDW SD 39.8 LAB L100.1900 150-450 K/mm3 Normal PLT 259 LAB L100.2000 6.2-12.0 fl Normal MPV 10.3 LAB L100.2100 47-70 % High NEUT% 73.4 LAB L100.2200 19-41 % Low LY% 18.2 LAB L100.2300 0-10 % Normal MONO% 7.0 LAB L100.2400 0-5 % Normal EO% 1.0 LAB L100.2500 0-1 % Normal BASO% 0.2 LAB L100.2550 0.0-0.9 % Normal IM GRAN % 0.200 Result Comment: IG% - Immature Granulocytes (promyelocytes, myelocytes and metamyelocytes) > 1% indicates that a LEFT SHIFT is Present. LAB L100.2620 2.0-7.7 X10 3/uL High Absolute Neut 9.3 LAB L100.2720 0.83-4.51 X10 3/ul Normal Absolute Lymph 2.30 Performed By: #### L100.0100 #### [facility] [address] [place], [address] BASIC METABOLIC Collected: 06/28/2018 Status: F Source: [place] PROFILE ([facility]) 11:00 PM [facility] REPOSIT[facility] TYPE CODE TESTS RESULT OUT OF RANGE REFERENCE UNITS LAB L501.0100 74-106 mg/dL High GLU 113 Result Comment: Fasting Glucose result from 100 to 125 mg/dL suggests IMPAIRED HOMEOSTASIS per A.D.A. criteria. Please note revised GLUCOSE reference range effective 2017. LAB L501.1000 7-18 mg/dL Normal BUN 15 LAB L501.1100 0.55-1.02 mg/dL Normal CREAT,SERUM 0.81 Result Comment: The validity of the calculated GFR AND GFRAA in patients over 70 years has not been determined. Clinical correlation is essential. LAB L501.1110 >60 mL/min Normal EST GFR 89 Result Comment: Non- GFR Calc LAB L501.1115 >60 mL/min Normal EST GFR - AA 108 Result Comment: GFR Calc LAB L501.1255 ml/min Normal Estimated CRCL 89.29 LAB L501.1300 10-20 RATIO Normal BUN/CRE 18.5 LAB L501.2200 8.5-10 mg/dL Normal .1 CA 8.7 LAB L501.5300 136-14 mmol/L Normal 5 NA 139 LAB L501.5600 3.5-5. mmol/L Normal 1 K 4.2 LAB L501.5900 98-107 mmol/L High CL 108 LAB L501.6100 21.0-3 mmol/L Normal 2.0 CO2 25.0 LAB L501.6200 5-15 Normal GAP 6 Performed By: #### L500.2500 #### [facility] [address] [place], [address] EMERGENCY DEPARTMENT Observed: 05/27/2018 Status: F Source: [place] SUMMARY 4:47 PM [facility] REPOSIT[facility] Medical Records Department [address] [place] [address] Emergency Department Summary 05/27/18 0747 MR#: [id number] Acct: [id number] Name: VEL BURROUGHS Rep #: [id number] : 1990 28 From: Robe Botello MD PCP: Diana Canela MD Status: DEP ER - ER Visit Summary Date of Service: 05/27/18 Chief Complaint: Right flank pain History of Present Illness: The patient is a 28 F past medical history. No prior abdominal surgeries. Had a vaginal delivery about 6 months ago. Patient states that this morning about 0 5:45 AM she had sudden onset of right flank pain that got worse. She had 2 episodes of nausea and vomiting. No diarrhea. No fever. No dysuria. No hematuria. She had this 1 other time when she was but did not have it worked up at that time. She has no known history of gallbladder disease. No known history of prior kidney stones. She is been feeling fine the last several days. Currently she states the pain is much better than it was at its worse. And she is not nauseated currently. Physical Examination: Well-appearing young female. Coming by her and 3 children. Vital signs are stable. Afebrile. H EENT exam unremarkable. Neck nontender no lymphadenopathy. Lungs clear to auscultation bilaterally. Heart regular rhythm no murmur. Abdomen is soft. Nontender. Nondistended. Normal bowel sounds. No peritoneal signs. Both the right upper right lower quadrants are unremarkable. There is no hernias or masses. No McBurney's point tenderness. No Doe sign. Currently her back and right flank are nontender. There is no CVA tenderness. She points to her right upper quadrant right flank area where the pain was. She is moving all 4 extremities. They are neurovascularly intact. Calves are nontender without edema. Neurologically she is awake and alert with no focal motor deficits. Test Results: CBC shows no acute abnormality. White count of 9. Hemoglobin 12. Chemistries unremarkable normal BUN and creatinine of 0.6. UA normal. No white cells no red cells on the microscopic sample. No signs of infection. CT flank without contrast shows bilateral renal stones. And a distal right UVJ 6.5 mm ureteral stone. No obstruction. I discussed all his test results with the patient and her family. Emergency Department Course and Treatment: Currently the patient wants no medications for pain or nausea. Repeat exam patient is doing well 9:24 a.m.will be discharged home. Treatment Plan: Strain urine. Plenty of fluids. Toradol and Lipan for pain as needed. Disposition: Discharge Impression: Acute right flank pain secondary to a distal right UVJ 6.5 mm stone This note was generated with Speed Dating by Chantilly Lace dictation software. It may contain incorrect words, spelling, and punctuation that were not noted in review of the chart prior to signing ED Disposition - Plan for ED Patient: Chief Complaint: Flank Pain Instructions: ED Flank Pain Uncertain Cause Referrals: Diana Canela MD [Primary Care Provider] - What to do if you have Problems For any increased pain, shortness of breath, bleeding, nausea or vomiting, chest pain, or any unexpected problems, contact your Primary Care Provider. Call [facility] ([phone]) or report to the closest Emergency Room. Call 911 if necessary. 05/27/18 9540 <Electronically signed by Robe Botello MD> Date Robe Boetllo MD Cosigner Signature (If Indicated): Date CC: Diana Canela MD DISCHARGE INSTRUCTION Observed: 05/27/2018 Status: F Source: [place] 4[facility]47 [facility] Medical Records Department [address] [place] [address] Discharge Instruction 05/27/18 0750 MR#: [id number] Acct: [id number] Name: VEL BURROUGHS Rep #: [id number] : 1990 28 From: Robe Botello MD PCP: Diana Canela MD Status: DEP ER ED Disposition - Plan for ED Patient: Disposition: Home or Assisted Living Chief Complaint: Flank Pain Instructions: ED Stone Renal W Colic Prescriptions: Hydrocodone/Acetaminophen [Lipan 7.5-325 Tablet] 1 ea PO Q6H PRN PRN #10 tab PRN Reason: Pain Ketorolac [Toradol] 10 mg PO Q4H #10 tab Referrals: Diana Canela MD [Primary Care Provider] - As Needed Reza Danielle MD [STAFF PHYSICIAN] - As Needed Additional Instructions: Plenty of fluids and rest. Toradol which is a strong anti-inflammatory for pain as needed. Lipan which is a narcotic pain medication for pain as needed. Strain your urine for passed stone. Follow-up with the urologist if needed. What to do if you have Problems For any increased pain, shortness of breath, bleeding, nausea or vomiting, chest pain, or any unexpected problems, contact your Primary Care Provider. Call [facility] ([phone]) or report to the closest Emergency Room. Call 911 if necessary. 05/27/18 1647 <Electronically signed by Robe Botello MD> Date Robe Botello MD Cosigner Signature (If Indicated): Date CC: Diana Canela MD CBC W/DIFF, AUTOMATED Collected: 05/27/2018 Status: F Source: [place] 8:10 AM [facility] REPOSITORY TYPE CODE TESTS RESULT OUT OF RANGE REFERENCE UNITS LAB L100.1000 4.4-11.0 K/mm3 Normal WBC 9.8 LAB L100.1200 4.2-5.4 M/mm3 Normal RBC 4.41 LAB L100.1300 12.0-15.0 g/dl Normal HGB 12.4 LAB L100.1400 37-47 % Normal HCT 37.6 LAB L100.1500 81-99 fL Normal MCV 85.3 LAB L100.1600 27.0-32.0 pg Normal MCH 28.1 LAB L100.1700 32-36 g/gl Normal MCHC 33.0 LAB L100.1810 11.6-14.6 % Normal RDW CV 13.3 LAB L100.1820 35.1-43.9 fl Normal RDW SD 41.7 LAB L100.1900 150-450 K/mm3 Normal PLT 254 LAB L100.2000 6.2-12.0 fl Normal MPV 9.7 LAB L100.2100 47-70 % High NEUT% 70.6 LAB L100.2200 19-41 % Normal LY% 21.0 LAB L100.2300 0-10 % Normal MONO% 7.1 LAB L100.2400 0-5 % Normal EO% 1.0 LAB L100.2500 0-1 % Normal BASO% 0.1 LAB L100.2550 0.0-0.9 % Normal IM GRAN % 0.200 Result Comment: IG% - Immature Granulocytes (promyelocytes, myelocytes and metamyelocytes) > 1% indicates that a LEFT SHIFT is Present. LAB L100.2620 2.0-7.7 X10 3/uL Normal Absolute Neut 6.9 LAB L100.2720 0.83-4.51 X10 3/ul Normal Absolute Lymph 2.06 Performed By: #### L100.0100 #### [facility] [address] [place], [address] BASIC METABOLIC Collected: 05/27/2018 Status: F Source: [place] PROFILE ([place]) 8:10 AM [facility] REPOSITORY TYPE CODE TESTS RESULT OUT OF RANGE REFERENCE UNITS LAB L501.0100 74-106 mg/dL High GLU 120 Result Comment: Fasting Glucose result from 100 to 125 mg/dL suggests IMPAIRED HOMEOSTASIS per A.D.A. criteria. Please note revised GLUCOSE reference range effective 2017. LAB L501.1000 7-18 mg/dL Normal BUN 13 LAB L501.1100 0.55-1.02 mg/dL Normal CREAT,SERUM 0.63 Result Comment: The validity of the calculated GFR AND GFRAA in patients over 70 years has not been determined. Clinical correlation is essential. LAB L501.1110 >60 mL/min Normal EST GFR 120 Result Comment: Non- GFR Calc LAB L501.1115 >60 mL/min Normal EST GFR - AA 145 Result Comment: GFR Calc LAB L501.1255 ml/min Normal Estimated CRCL 114.80 LAB L501.1300 10-20 RATIO High BUN/CRE 20.7 LAB L501.2200 8.5-10 mg/dL .1 CA Normal 8.8 LAB L501.5300 136-14 mmol/L 5 NA Normal 140 LAB L501.5600 3.5-5. mmol/L 1 K Normal 4.6 LAB L501.5900 98-107 mmol/L CL Normal 107 LAB L501.6100 21.0-3 mmol/L 2.0 CO2 Normal 25.0 LAB L501.6200 5-15 GAP Normal 8 Performed By: #### L500.2500 #### [facility] [address] [place], [address] ABDOMEN/PELVIS WITHOUT Observed: 05/27/2018 Status: F Source: [place] CONT 7:47 AM [facility] REPOSIT[facility] Imaging Services [address] [place] [address] Abdomen/Pelvis without Cont MR#: [id number] Acct: [id number] Name: VEL BURROUGHS Felisa Rep #: [id number] : 1990 F 28 From: Henry Deshpande MD PCP: Diana Canela MD Status: REG ER Study: Abdomen/Pelvis without Cont Date of Exam: 05/27/18 Exam# [id number] Ordering Dr: Robe Botello MD STUDY: CT ABDOMEN AND PELVIS WITHOUT CONTRAST REASON FOR EXAM: Female, 28 years old. Vomiting and right flank pain. RADIATION DOSAGE (If Supplied By Facility): CTDIvol = ( 17.28 ) mGy, DLP = ( 863.17 ) mGycm TECHNIQUE: Transaxial images were obtained from the dome of the diaphragm to the symphysis pubis without oral contrast, and without intravenous contrast. Sagittal and coronal images were reconstructed. Individualized dose optimization techniques were used for this CT. COMPARISON: None. FINDINGS: The visualized lung bases are unremarkable. The visualized portions of the heart are within normal limits. Normal liver. Normal gallbladder and extrahepatic biliary system. Normal spleen. Normal pancreas. Normal bilateral adrenal glands. There is a 6.8 mm nonobstructive calculus in the lower pole calyx of the right kidney I suspect a 6.5 mm calculus in the distal portion of the left ureter just proximal to the ureterovesical junction. There is a 6 mm nonobstructive calculus in the lower pole calyx of the left kidney. There is a small hiatal hernia. Normal small intestine. Normal colon. The appendix is visualized and appears normal. Normal abdominal aorta. Normal inferior vena cava. There is borderline retroperitoneal lymphadenopathy with enlarged nodes no greater than 10mm in the short axis diameter. Normal urinary bladder. Normal abdominal wall. Normal osseous structures. CT/Abdomen/Pelvis without Cont IMPRESSION: There is a 6 mm nonobstructive calculus in the lower pole calyx of the left kidney. I suspect a 6.5 mm calculus in the distal portion of the right ureter just proximal to the ureterovesical junction. Electronically Signed: Henry Deshpande MD at 8:50 EST Tel [phone], Service support , CC: Diana Canela MD; Robe Botello MD Sfdc Solution Architect: Signed URINALYSIS, COMPLETE Collected: 05/27/2018 Status: F Source: [place] 7:40 AM [facility] REPOSITORY Order Comment: Order Date: 05/27/18 How was Urine Obtained? CLEAN CATCH TYPE CODE TESTS RESULT OUT OF RANGE REFERENCE UNITS LAB L400.3000 Yellow COLOR Normal Yellow LAB L400.3050 Clear Normal CLARITY Sl. Cloudy LAB L400.3200 Normal mg/dl Normal GLUCOSE, UR Normal LAB L400.3300 Negative mg/dL Normal BILIRUBIN URINE Negative LAB L400.3400 Negative mg/dl Normal KETONE UR Negative LAB L400.3465 1.002-1.030 Normal SP.GR. DIPSTX 1.015 LAB L400.3550 5.0 - 8.0 pH UR Normal 6.0 LAB L400.3600 Negative mg/dl High PROT 15 DIPSTX LAB L400.3700 Normal mg/dl Normal UROBILI Normal LAB L400.3750 Negative Normal NITRITE UR Negative LAB L400.3780 Negative /ul High 50 OCCULT BLOOD-UR LAB L400.3800 Negative /ul High LEUK 25 ESTERASE LAB L400.4050 0-5 /hpf WBC Normal 0-5 SEEN LAB L400.4100 0-5 /hpf Normal RBC-UA 0-5 SEEN LAB L400.4150 5-10 /hpf SQUAM Normal EPI 0-5 SEEN LAB L400.4300 None Seen /hpf 1+ Normal BACTERIA LAB L400.4350 <or=2+ /hpf 1+ Normal MUCUS, URINE Performed By: #### L400.0001 #### [facility] [address] [place], [address] PAP I-G W/RFX HRHPV Collected: 03/17/2018 Status: F Source: [place] 1:30 PM [facility] REPOSITORY Order Comment: CYTOLOGY INFORMATION: - CLINICAL INFORMATION: - DATE LMP/MENOPAUSE: LMP - COLLECTION VIAL: Thin Prep Vial - AGENCY MANAGER SOURCE: CERVICAL/ENDOCERVICAL - COLLECTION TECHNIQUE: BRUSH/SPATULA Specimen Comment: [id number] Specimen Comment: Source.............Cervix;Endocervix Specimen Comment: Other..............Lactating Specimen Comment: No. of containers..01 ThinPrep Vial TYPE CODE TESTS RESULT OUT OF REFERENCE UNITS RANGE LAB L7400.0800 . High DIAGN Comment Result Comment: EPITHELIAL CELL ABNORMALITY. ATYPICAL SQUAMOUS CELLS OF UNDETERMINED SIGNIFICANCE. LAB L7400.0900 . Normal ADEQ Comment Result Comment: Satisfactory for evaluation. Endocervical and/or squamous metaplastic cells (endocervical component) are present. LAB L7400.1300 . High RECOMM Comment Result Comment: Suggest follow up as clinically appropriate. LAB L7400.1400 . Normal PERFORM Comment Result Comment: Angel Nicholas, Wealth Management Manager (ASCP) LAB L7400.1700 . Normal SIGN Comment Result Comment: Isela Rhodes MD, Pathologist LAB L7400.1720 . Normal Path prov. Comment ICD9 Result Comment: R87.610 LAB L7400.2575 . Normal TEST METHOD Comment Result Comment: This liquid based ThinPrep(R) pap test was screened with the use of an image guided system. LAB L7400.2600 . Normal . COMM LAB L7400.2700 . Normal PAPSMR Comment Result Comment: The Pap smear is a screening test designed to aid in the detection of premalignant and malignant conditions of the uterine cervix. It is not a diagnostic procedure and should not be used as the sole means of detecting cervical cancer. Both false-positive and false-negative reports do occur. LAB L7400.2800 . Normal HPV RFLX Comment Result Comment: See below for HPV testing results. LAB L7400.2900 Negative Normal HPV Negative HC,HGH RISK Result Comment: This high-risk HPV test detects thirteen high-risk types (16/18/31/33/35/39/45/51/52/56/58/59/68) without differentiation. Performed at: - [facility] [id number] Buffing Machine Tender: Lola Cummins MD, Phone: [phone] Performed at: = - [facility] [address] [id number] Buffing Machine Tender: Lola Cummins MD, Phone: [phone] Performed By: #### L7400.0350 #### [facility] (refer to report for specific site) refer to report for address and phone number DISCHARGE SUMMARY Observed: 10/28/2017 Status: F Source: [place] 8:19 AM [facility] Medical Records Department [address] [place] [address] Discharge Summary 10/28/17 0816 MR#: [id number] Acct: [id number] Name: VEL BURROUGHS Rep #: [id number] : 1990 27 From: Kilo Garcia MD PCP: Ricky Griffin MD Status: ADM IN Y [facility] Discharge Date and Diagnosis - Problem List Patient Problems: Active and Suspected Problems Term delivered (Acute) Term (Acute) Date of Admission: 10/26/17 Date of Discharge: 10/28/17 - Primary Discharge Diagnosis Active and Suspected Problems Term delivered (Acute) Term (Acute) Hospital Course and Treatment Consultations 10/26/17 07:39 Consult: Anesthesia Routine Comment: Reason For Exam: LABOR Operations: None Procedures: - - Pitocin induction, Summary of Care Provided: The patient is a 27 year old F [admitted for elective induction of labor at 39w2d ega. Pitocin induction resulted in spontaneous vaginal delivery of a live male without complication. Post course unremarkable. Was discharged on PP day#2.] Discharge Diet: No Restrictions Discharge Activity: Return to Normal Activity, May Drive, May Shower Return to work on:: 12/13/17 May shower in (days): 0 May resume sexual activity in: 4-6 weeks Call your doctor if your incision/area has: Sudden Increased Bleeding, Increased Pain/ Swelling, Foul Smelling Discharge Call your doctor if you observe: Fever of 101 or Higher, Inability to urinate, Inability to have a bowel movement, Using more than one pad per hour, Shortness of breath, Chest pain, Calf discomfort, Uncontrolled pain Cleanse incision/area with: Soap AND Water Home Medications: Medications to take at Discharge Ferrous Sulfate 324 mg PO DAILY 10/09/17 Ibuprofen [Ibu] 600 mg PO Q6H PRN PRN #30 tab 10/27/17 Following Prescrptions Were Given to Patient: Ibuprofen [Ibu] 600 mg PO Q6H PRN PRN #30 tab PRN Reason: pain or cramping Primary Care Physician: Ricky Griffin MD [Primary Care Provider] - Please Follow Up With: Kilo Garcia MD When: 6 weeks Disposition: Home Minutes spent on discharge:: 15 Patient Condition:: Good Medical Necessity - Tobacco Use Smoking Status: Smoker, status unknown Meaningful Use Info Meaningful Use Diagnoses (Choose all that apply): None applicable 10/28/17818 <Electronically signed by Kilo Garcia MD> Date Kilo Garcia MD Cosigner Signature (if applicable): Date CC: Kilo Garcia MD; Ricky Griffin MD Signed DISCHARGE INSTRUCTION Observed: 10/27/2017 Status: F Source: [place] 7:47 AM [facility] Medical Records Department [address] [place] [address] Instructions for Home/Discharge Instructions 10/27/17 0746 MR#: [id number] Acct: [id number] Name: VEL BURROUGHS Rep #: [id number] : 1990 27 From: Kilo Garcia MD PCP: Ricky Griffin MD Status: ADM IN Discharge Diet: No Restrictions Discharge Activity: Return to Normal Activity, May Drive, May Shower Return to work on:: 12/13/17 May shower in (days): 0 May resume sexual activity in: 4-6 weeks Call your doctor if your incision/area has: Sudden Increased Bleeding, Increased Pain/ Swelling, Foul Smelling Discharge Call your doctor if you observe: Fever of 101 or Higher, Inability to urinate, Inability to have a bowel movement, Using more than one pad per hour, Shortness of breath, Chest pain, Calf discomfort, Uncontrolled pain Cleanse incision/area with: Soap AND Water Additional Instructions: If you experience any of the following, contact your healthcare provider. * Bleeding that soaks a pad every hour for 2 hours * Fever 100.4 or higher * Unrelieved incision or abdominal pain * Swelling, redness, discharge or bleeding from your incision or episiotomy site * Your incision begins to separate * Problems urinating (including inability to urinate or burning while urinating). * Visual changes * Severe headache * Flu-like symptoms * Pain or redness in one of both of your breasts * Pain, warmth, tenderness or swelling in your legs, especially the calf area * Frequent nausea and vomiting * Symptoms of depression or anxiety If you experience any of the following, call 911 or go to the nearest Emergency Room. * Chest pain * Problems breathing * Seizure activity * Partial or complete paralysis of a body part, slurred speech, weakness or drooping of the face, or a sudden inability to walk or hold your balance Allergies/Adverse Reactions: Allergies No Known Allergies Allergy (Verified 10/09/17 19:47) Medications to take at Discharge Ferrous Sulfate 324 mg PO DAILY 10/09/17 Ibuprofen [Ibu] 600 mg PO Q6H PRN PRN #30 tab 10/27/17 The following prescriptions were given: Ibuprofen [Ibu] 600 mg PO Q6H PRN PRN #30 tab PRN Reason: pain or cramping Please Follow Up With: Kilo Garcia MD When: 6 weeks Primary Care Physician: Ricky Griffin MD [Primary Care Provider] - Proposed Discharge Date: 10/27/17 10/27/17 0747 <Electronically signed by Kilo Garcia MD> Date Kilo Garcia MD CC: Ricky Griffin MD CBC-COMPLETE BLOOD CNT Collected: 10/27/2017 Status: F Source: [place] NO DIFF 5:45 AM [facility] Order Comment: Reason for Laboratory Test Day #1 TYPE CODE TESTS RESULT OUT OF RANGE REFERENCE UNITS LAB L100.1000 4.4-11.0 K/mm3 High WBC 13.2 LAB L100.1200 4.2-5.4 M/mm3 Low RBC 3.72 LAB L100.1300 12.0-15.0 g/dl Low HGB 10.5 LAB L100.1400 37-47 % Low HCT 32.3 LAB L100.1500 81-99 fL Normal MCV 86.8 LAB L100.1600 27.0-32.0 pg Normal MCH 28.2 LAB L100.1700 32-36 g/gl Normal MCHC 32.5 LAB L100.1810 11.6-14.6 % Normal RDW CV 14.3 LAB L100.1820 35.1-43.9 fl Normal RDW SD 43.2 LAB L100.1900 150-450 K/mm3 Normal PLT 160 LAB L100.2000 6.2-12.0 fl Normal MPV 11.0 Performed By: #### L100.0500 #### [facility] [address] [place], [address] OPERATIVE REPORT Observed: 10/26/2017 Status: F Source: [place] 10:58 AM [facility] Medical Records Department [address] [place] [address] Operative Report 10/26/17 1054 MR#: [id number] Acct: [id number] Name: VEL BURROUGHS Rep #: [id number] : 1990 27 From: Kilo Garcia MD PCP: Ricky Griffin MD Status: ADM IN Y Location: TW133-6 - Problem List (1) Term delivered Status: Acute (2) Term Status: Acute Vaginal Delivery Maternal Presentation: Elective Induction 39w1d ega admitted for elective induction of labor Method of Induction: Pitocin Amniotic Membrane Rupture Type: Artificial Rupture of Membrane time: 0800 Amniotic Fluid Description: Clear Final VALERIA: 11/01/17 Final VALERIA Source: US <20 weeks Gestational age: 39 Weeks and 1 Days Date of Procedure: 10/26/17 Pre-Operative Diagnosis: labor Post-Operative Diagnosis: same Surgery/ Procedure Performed: Spontaneous Vaginal Delivery Type of Anesthesia: None Description of Procedure: Vel progressed to FD over 2 1/2 hours then pushed for about 15 minutes to deliver a live male with apgars of 8/9. There was a true knot tin the cord. Delayed cord clamping was employed. The cord was then clamped and cut. The placenta was delivered spontanouesly intact with a centrally located 3VC. The uterus contracted well. The vagina, cervix, and perineum were intact. Presentation: Vertex Placental Delivery Description: Spontaneous Placenta Disposition: [facility] Percentage of Placenta Abruption: 0 Cord Vessel Description: 3 Vessels Cord Entanglement: None Estimated Blood Loss: 400cc Infant A gender: Male (1 minute): 8 (5 minute): 9 Episiotomy Description: None Laceration: None Medications given after delivery: IV Pitocin Complications: None 10/26/17 1058 <Electronically signed by Kilo Garcia MD> Date Kilo Garcia MD CC: Kilo Garcia MD; Ricky Griffin MD Signed CBC-COMPLETE BLOOD CNT Collected: 10/26/2017 Status: F Source: [place] NO DIFF 7:30 AM [facility] TYPE CODE TESTS RESULT OUT OF RANGE REFERENCE UNITS LAB L100.1000 4.4-11.0 K/mm3 High WBC 12.5 LAB L100.1200 4.2-5.4 M/mm3 Low RBC 3.96 LAB L100.1300 12.0-15.0 g/dl Low HGB 11.1 LAB L100.1400 37-47 % Low HCT 34.0 LAB L100.1500 81-99 fL Normal MCV 85.9 LAB L100.1600 27.0-32.0 pg Normal MCH 28.0 LAB L100.1700 32-36 g/gl Normal MCHC 32.6 LAB L100.1810 11.6-14.6 % Normal RDW CV 14.1 LAB L100.1820 35.1-43.9 fl Normal RDW SD 43.2 LAB L100.1900 150-450 K/mm3 Normal PLT 176 LAB L100.2000 6.2-12.0 fl Normal MPV 11.4 Performed By: #### L100.0500 #### [facility] [address] [place], [place], [address] TYPE AND SCREEN Collected: 10/26/2017 Status: F Source: [place] 7:30 AM [facility] Order Comment: Reason for Type AND Screen/Red Cells: ROUTINE TYPE CODE TESTS RESULT OUT OF RANGE REFERENCE UNITS LAB B10.0800 A Normal BLOOD TYPE GEL POSITIVE LAB B100.4000 Normal Antibody NEGATIVE Screen Performed By: #### B101.7450 #### [facility] [address] [place], [address] (ROM) RUPTURE OF Collected: 10/17/2017 Status: F Source: [place] 6:08 PM [facility] TYPE CODE TESTS RESULT OUT OF RANGE REFERENCE UNITS LAB L205.1310 Negative Normal ROM Negative Result Comment: Amniotic fluid not present indicates No Rupture of Membranes at time of specimen collection. Performed By: #### L205.1000 #### [facility] [address] [place], [address] DISCHARGE SUMMARY Observed: 10/11/2017 Status: F Source: [place] 7:56 AM [facility] Medical Records Department [address] [place] [address] Discharge Summary 10/11/17 0749 MR#: [id number] Acct: [id number] Name: VEL BURROUGHS Rep #: [id number] : 1990 27 From: Sienna Griffin MD PCP: Ricky Griffin MD Status: DIS IN Y [facility] Discharge Date and Diagnosis Date of Admission: 10/09/17 Date of Discharge: 10/10/17 Hospital Course and Treatment Consultations 10/09/17 19:51 Consult: Anesthesia Routine Comment: Reason For Exam: LABOR Operations: None Procedures: None Summary of Care Provided: The patient is a 27 year old F 3 para 1102 admitted at 36 6/7 weeks gestation with contractions at 4-5cm for observation. She was given betamethasone IM and observed with expectant management. Her cervix remained unchanged over the rest of a 24 hour period. She was given a second dose of betamethasone and discharged from triage. Home Medications: Medications to take at Discharge Ferrous Sulfate 324 mg PO 10/09/17 Triamcinolone 0.5% Cream [Kenalog] 10/09/17 Primary Care Physician: Ricky Griffin MD [Primary Care Provider] - Medical Necessity - Tobacco Use Smoking Status: Never smoker Meaningful Use Info Meaningful Use Diagnoses (Choose all that apply): None applicable 10/11/17 0756 <Electronically signed by Sienna De La Vega MD> Date Sienna De La Vega MD Cosigner Signature (if applicable): Date CC: Ricky Griffin MD; Sienna De La Vega MD Signed CBC-COMPLETE BLOOD CNT Collected: 10/09/2017 Status: F Source: [place] NO DIFF 8:00 PM [facility] TYPE CODE TESTS RESULT OUT OF RANGE REFERENCE UNITS LAB L100.1000 4.4-11.0 K/mm3 High WBC 14.1 LAB L100.1200 4.2-5.4 M/mm3 Low RBC 3.86 LAB L100.1300 12.0-15.0 g/dl Low HGB 10.9 LAB L100.1400 37-47 % Low HCT 33.5 LAB L100.1500 81-99 fL Normal MCV 86.8 LAB L100.1600 27.0-32.0 pg Normal MCH 28.2 LAB L100.1700 32-36 g/gl Normal MCHC 32.5 LAB L100.1810 11.6-14.6 % High RDW CV 14.9 LAB L100.1820 35.1-43.9 fl High RDW SD 46.5 LAB L100.1900 150-450 K/mm3 Normal PLT 199 LAB L100.2000 6.2-12.0 fl Normal MPV 10.3 Performed By: #### L100.0500 #### [facility] [address] [place], [place], [address] TYPE AND SCREEN Collected: 10/09/2017 Status: F Source: [place] 8:00 PM [facility] Order Comment: Reason for Type AND Screen/Red Cells: TYPE CODE TESTS RESULT OUT OF RANGE REFERENCE UNITS LAB B10.0800 A Normal BLOOD TYPE GEL POSITIVE LAB B100.4000 Normal Antibody NEGATIVE Screen Performed By: #### B101.7450 #### [facility] [address] [place], [place], [address] GROUP B STREP DNA Collected: 09/30/2017 Status: F Source: [place] BY PCR 3:00 PM [facility] Order Comment: Source: Vaginal-Rectal TYPE CODE TESTS RESULT OUT OF RANGE REFERENCE UNITS LAB L8200.0100 Negative Normal GBS TEST Negative RESULT Performed By: #### L8200.0000 #### [facility] [address] [place], [address] Observed: 09/30/2017 Status: F Source: [place] CULTURE, GROUP B 12:00 AM [facility] STREPTOCOCCUS REPOSITORY SHERRY Culture Group B Beta Streptococcus is not isolated. Performed By: #### M100.1800 #### [facility] [address] [place], [address] CBC-COMPLETE BLOOD CNT Collected: 08/10/2017 Status: F Source: [place] NO DIFF 10:45 AM [facility] TYPE CODE TESTS RESULT OUT OF RANGE REFERENCE UNITS LAB L100.1000 4.4-11.0 K/mm3 High WBC 13.1 LAB L100.1200 4.2-5.4 M/mm3 Low RBC 3.73 LAB L100.1300 12.0-15.0 g/dl Low HGB 10.4 LAB L100.1400 37-47 % Low HCT 32.5 LAB L100.1500 81-99 fL Normal MCV 87.1 LAB L100.1600 27.0-32.0 pg Normal MCH 27.9 LAB L100.1700 32-36 g/gl Normal MCHC 32.0 LAB L100.1810 11.6-14.6 % Normal RDW CV 14.1 LAB L100.1820 35.1-43.9 fl High RDW SD 44.4 LAB L100.1900 150-450 K/mm3 Normal PLT 244 LAB L100.2000 6.2-12.0 fl Normal MPV 10.6 Performed By: #### L100.0500 #### [facility] [address] [place], [address] GLUCOSE CHALLENGE GEST Collected: 08/10/2017 Status: F Source: [place] 1H 50G 10:45 AM [facility] TYPE CODE TESTS RESULT OUT OF RANGE REFERENCE UNITS LAB L501.0250 70-140 mg/dL Normal GLU GEST 116 50g 1H Performed By: #### L501.0250 #### [facility] [address] [place], [address] ALLERGIES ALLERGIES DATE TYPE / CODE NAME / CODE REACTION SEVERITY SOURCE 06/28/2018 Drug No Known Unknown [facility] Allergy/4160 Allergies/F00 Hospital 36078(SNOMED 5422077(RXNOR Repository CT) M) ENCOUNTERS ENCOUNTERS ADMIT/DISCHARGE ACCOUNT ADMITTING ENCOUNTER LOCATION SOURCE NUMBER CLASS 06/28/2018/ [id number] Emergency Lorenzo Lorenzo 9 5 [facility] ing:ED Repository 05/27/2018/ [id number] Emergency Lorenzo Lorenzo 8 5 [facility] ing:ED Repository 03/17/2018 [id number] Ambulatory Kersey Lorenzo 0 [facility] ing:LABSPEC Repository 10/26/2017/ [id number] Kilo Garcia Inpatient Lorenzo Lorenzo 8 4 Encounter [facility] ing:WPRoom: Repository [id number]: 1 10/26/2017 [id number] Kilo Garcia Inpatient Lorenzo Lorenzo 4 Encounter [facility] ing:WP Repository 10/17/2017/ [id number] Ambulatory Kersey Lorenzo 8 5 [facility] ing:WPOUT Repository 10/13/2017/ [id number] Ambulatory Kersey Kersey 8 6 [facility] ing:WPOUT Repository 10/09/2017/ [id number] Yolette Ambulatory Lorenzo Lorenzo 8 1 Summer [facility] ing:WPRoom: Repository [id number]: 1 09/30/2017 [id number] Ambulatory Kersey Kersey 7 [facility] ing:LABSPEC Repository 08/10/2017 [id number] Ambulatory Kersey Kersey 6 [facility] ing:WOBLAB Repository PAYERS PAYERS ENCOUNTER GUARANTOR PAYER SUBSCRIBER SOURCE 06/28/2018 VEL Roberto Primary GARCÍA Kersey [id number] W Insurance:ANTHEMPolic BRODWOLFDOB: [facility] y [place]: [id number] [id number] Repository [address]Kmm: 330) Date:6068-58-22YF [phone] () 201501IBSWKXQCAMILLE IBARRA [address]YE: 06/28/2018 Secondary NOT GIVENUNK Kersey Insurance:SELF PAY [facility] Number: Effective Repository Date:2018-06-28 05/27/2018 VEL R Primary GARCÍA Kersey [id number] W Insurance:ANTHEMPolic BRODWOLFDOB: [facility] y Number: [id number] [id number] Repository [address]Dly: (330) Date:1025-00-72IG [phone] () 839814PZRHHACCAMILLE IBARRA [address]DT: 05/27/2018 Secondary NOT GIVENUNK Kersey Insurance:SELF PAY [facility] Number: Effective Repository Date:2018-05-27 03/17/2018 VEL R Primary GARCÍA Lorenzo [id number] W Insurance:ANTHEMPolic BRODWOLFDOB: [facility] y Number: [id number] [id number] Repository [address]Mdy: (330) Date:1955-31-66DP [phone] () [place] TOM [address]LG: 03/17/2018 Secondary NOT GIVENUNK Kersey Insurance:SELF PAY [facility] Number: Effective Repository Date:2018-03-17 10/26/2017 VEL R Primary GARCÍA Kersey [id number] W Insurance:ANTHEMPolic BRODWOLFDOB: [facility] y Number: [id number], [place] [id number] Repository [address]Aze: (330) Date:1272-67-09VH [phone] () [id number] IBARRA [address]SX: 10/26/2017 Secondary NOT GIVENUNK Lorenzo Insurance:SELF PAY [facility] Number: Effective Repository Date:2017-10-26 10/26/2017 VEL R Primary GARCÍA Lorenzo [id number] W Insurance:ANTHEMPolic BRODWOLFDOB: [facility] y Number: [id number] [place] [id number] Repository [address]Hka: (330) Date:3045-30-86SH [phone] () [place] T[place] [address]GF: 10/26/2017 Secondary NOT GIVENUNK Lorenzo Insurance:SELF PAY [facility] Number: Effective Repository Date:2015-09-17 10/17/2017 VEL R Primary GARCÍA Kersey [id number] W Insurance:ANTHEMPolic BRODWOLFDOB: [facility] y Number: [id number], [place] [id number] Repository [address]Wym: (330) Date:4641-06-90NW [phone] () [place] [address]PE: 10/17/2017 Secondary NOT GIVENUNK Kersey Insurance:SELF PAY [facility] Number: Effective Repository Date:2017-10-17 10/13/2017 VEL R Primary GARCÍA Kersey [id number] W Insurance:ANTHEMPolic BRODWOLFDOB: [facility] y Number: [id number], [place] [id number] Repository [address]Bza: (330) Date:9529-98-71GP [phone] () [place] T[place] [address]MR: 10/13/2017 Secondary NOT GIVENUNK Lorenzo Insurance:SELF PAY [facility] Number: Effective Repository Date:2017-10-13 10/09/2017 VEL R Primary GARCÍA Lorenzo [id number] W Insurance:ANTHEMPolic BRODWOLFDOB: [facility] y Number: [id number], [place] [id number] Repository [address]Klh: (330) Date:3098-22-11DS [phone] () [place] [address]JS: 10/09/2017 Secondary NOT GIVENUNK Kersey Insurance:SELF PAY [facility] Number: Effective Repository Date:2017-10-09 09/30/2017 Vel R Primary García Lorenzo [id number] W Insurance:ANTHEMPolic BrodwolfDOB: [facility] [place] Number: [id number] [id number] Repository [address]Jzt: (330) Date:2470-75-29AZ [phone] () [id number] [place] [address]LY: 09/30/2017 Secondary NOT GIVENUNK Kersey Insurance:SELF PAY [facility] Number: Effective Repository Date:2017-09-30 08/10/2017 Vel R Primary García Kersey [id number] W Insurance:ANTHEMPolic BrodwolfDOB: [facility] [place] Number: [id number], [place] [id number] Repository [address]Ddw: (330) Date:1528-02-76JU [phone] () [id number] [place] [address]LR: 08/10/2017 Secondary NOT GIVENUNK Lorenzo Insurance:SELF PAY [facility] Number: Effective Repository Date:2017-08-10
== END 2018-06-29 01:50 | disposition home or self-care (01) ==
PROVIDERS: Emergency Provider Emergency Medicine; Family Provider Family Medicine; PCP Family Medicine
DX: N20.0 Calculus of kidney (principal); Z87.442 Personal history of urinary calculi
CPT/HCPCS: 74176; 80048; 81001; 84703; 85025; 96361; 96374; 96375; 99282; J2405

== ENCOUNTER 2018-07-05 06:27 | Day surgery (SDC) | payer BC, SELFPAY ==
[2018-07-05 07:01] VITALS: BP 130/71; PULSE 75; RESP 16; TEMP 37.3; O2SAT 98; BMI 36.6
[2018-07-05 07:06] LABS: Internal QC Validated? YES +Cl - CLEAR BKGD; Pregnancy, Urine Negative Negative
[2018-07-05] MEDS: Cefazolin 2 GM in 0.9% Normal Saline 100 ML IV (08:07)
--- NOTE | 2018-07-05 08:49 | PCM.OPRPT ---
Problem List (1) Right ureteral calculus Status: Acute Report of Operation Date of Procedure: 07/05/18 Pre-Operative Diagnosis: right ureteral calculus Post-Operative Diagnosis: same Surgery/Procedure Performed:: cystoscopy, right ureteroscopy, holmium laser lithotripsy, right ureteral stent insertion Description of Surgical Findings:: large stone, fragmented into small pieces that entered the bladder. Stent 6x24 good position. material requisitioner: Lenora Mcneil Type of Anesthesia:: General Special Medications: Ancef 2gm IV Estimated Blood Loss (mL): 2cc Description of Procedure: The patient is a 28-year-old female presented to the office with signs and symptoms of urolithiasis. An evaluation with a CT scan she was identified as having a large distal right ureteral calculus. After discussing the risk benefits and alternatives she agreed to proceed with surgical intervention. The patient was taken to the operating room and placed on the operating room table. Anesthesia monitored the head, neck, airway, IV access and vital signs throughout the case. Once anesthesia was appropriately administered the patient was placed into dorsal lithotomy position was prepped and draped in usual sterile fashion. At this time a cystourethroscopy was performed revealing no abnormality of the urinary bladder or the urethra aside from edema at the right ureteral orifice. The stone was easily visualized on fluoroscopy. At this time a 0.035 Glidewire was passed through the ureteral orifice into the renal pelvis. The semirigid ureteroscope was then used for ureteroscopy and the stone was easily identified. Using a holmium laser fiber the stone was fragmented into small fragments and dust that easily passed into the urinary bladder. Ureteroscopy was performed to the upper one third of the ureter. There were no further abnormalities identified. A 6 [place] 24 cm double-J stent was then inserted without difficulty with good curling in the renal pelvis as well as the urinary bladder. The patient's bladder was then emptied and the case was terminated. The patient tolerated the procedure well without complication. Grafts/Implants Used: 6x24 JJ stent - Complications none - Admit VTE Documentation VTE Present on Admission: Yes VTE Mechan Device Prophylaxis: SCD's VTE Pharm Prophylaxis ordered?: No Reason prophylaxis not ordered:: Treatment Not Indicated
--- NOTE | 2018-07-05 08:55 | DCINST_ITS ---
Discharge Diet: No Restrictions Discharge Activity: May not drive while taking narcotic pain medications. May resume sexual activity in: No Restrictions Call your doctor if you observe: Fever of 101 or Higher, Inability to urinate, Shortness of breath, Calf discomfort, Uncontrolled pain Allergies/Adverse Reactions: Allergies No Known Allergies Allergy (Verified 07/04/18 13:48) Medications to take at Discharge Smz/Tmp Ds [Bactrim Ds] 1 tablet PO BID 07/04/18 Tamsulosin HCl [Flomax] 0.4 mg PO DAILY 07/04/18 Primary Care Physician: Diana Canela MD [Primary Care Provider] - Test Results: Test results from this visit will be discussed in further detail at your follow- up appointment, if applicable. Please Follow Up With: Lenora Mcneil MD When: Call for appt this week to remove stent. Proposed Discharge Date: 07/05/18
[2018-07-05 08:58] VITALS: BP 130/71; PULSE 60; RESP 16; TEMP 36.4; O2SAT 99
[2018-07-05 09:00] VITALS: BP 118/75; BP 130/71; PULSE 70; RESP 16; O2SAT 98
[2018-07-05 09:16] VITALS: BP 111/70; BP 130/71; PULSE 69; RESP 16; TEMP 36.2; O2SAT 99
[2018-07-05 09:51] VITALS: BP 120/68; BP 130/71; PULSE 57; RESP 16; TEMP 36.1; O2SAT 100
== END 2018-07-05 09:53 | disposition home or self-care (01) ==
LOC: SDC 06:29 → AC 06:31
PROVIDERS: Family Provider Family Medicine; PCP Family Medicine; Referring Provider Urology; Visit Provider Urology
PROC: 0TJ98ZZ Inspection of Ureter, Via Natural or Artificial Opening Endoscopic (ICD-10-PCS; CPT 52352; principal; 2018-07-05 07:50)
DX: N13.2 Hydronephrosis with renal and ureteral calculous obstruction (principal); E28.2 Polycystic ovarian syndrome; N13.4 Hydroureter; M54.5 Low back pain; Z87.442 Personal history of urinary calculi
CPT/HCPCS: 00918; 52356; 76000; 81025; J7120; C1769; C2617; J2405

== ENCOUNTER → 2018-07-20 14:09 | Outpatient (CLI) | payer BC, SELFPAY ==
[2018-07-05 07:01] VITALS: BMI 36.6
--- NOTE | 2018-07-20 14:11 | RAD_ITS ---
STUDY: X-RAY - ABDOMEN/PELVIS REASON FOR EXAM: Female, 28 years old. Flank pain TECHNIQUE: AP supine and upright views of the abdomen and pelvis. COMPARISON: None. FINDINGS: There is a 5 mm stone overlying the lower pole of the right kidney. There is an unremarkable bowel gas pattern. There is no demonstrated free abdominal air. The visualized liver, spleen and kidneys are grossly normal in size and morphology. There are calcified phleboliths in the pelvis. Normal visualized osseous structures. RAD/Abdomen Single View IMPRESSION: No acute findings, likely right nephrolithiasis Electronically Signed: Brown Moyer MD at 17:18 EST , Service support ,
== END ==
PROVIDERS: Family Provider Family Medicine; PCP Family Medicine; Referring Provider Urology; Visit Provider Urology
DX: N20.0 Calculus of kidney (principal)
CPT/HCPCS: 74018

== ENCOUNTER 2018-08-02 07:33 | Day surgery (SDC) | payer BC, SELFPAY ==
[2018-08-02 07:51] VITALS: BP 124/74; PULSE 69; RESP 14; TEMP 37.3; O2SAT 96; BMI 37.0
[2018-08-02 08:06] LABS: Internal QC Validated? YES +Cl - CLEAR BKGD
[2018-08-02 08:07] LABS: Pregnancy, Urine Negative Negative
--- NOTE | 2018-08-02 08:20 | DCINST_ITS ---
Discharge Diet: No Restrictions Discharge Activity: Return to Normal Activity, May not drive while taking narcotic pain medications. May resume sexual activity in: No Restrictions Call your doctor if you observe: Fever of 101 or Higher, Inability to urinate, Shortness of breath, Chest pain, Uncontrolled pain Allergies/Adverse Reactions: Allergies No Known Allergies Allergy (Verified 07/26/18 15:06) Medications to take at Discharge NK 07/26/18 Primary Care Physician: Diana Canela MD [Primary Care Provider] - Test Results: Test results from this visit will be discussed in further detail at your follow- up appointment, if applicable. Please Follow Up With: Lenora Mcneil MD When: 2-3 weeks with kub Proposed Discharge Date: 08/02/18
--- NOTE | 2018-08-02 08:20 | PCM.OPRPT ---
Problem List (1) Renal calculus, left Status: Acute Report of Operation Date of Procedure: 08/02/18 Pre-Operative Diagnosis: left renal calculus Post-Operative Diagnosis: same Surgery/Procedure Performed:: left renal extracorporeal shockwave lithotripsy Description of Surgical Findings:: stone appears well fragmented after 2000 shocks, procedure stopped. Type of Anesthesia:: General Special Medications: ancef Specimen's removed: none Estimated Blood Loss (mL): 1cc Description of Procedure: The patient is a 28-year-old female who has had several stones and this is her second procedure within the last 3 months. After discussing the risks, benefits and alternatives, she agreed to proceed with shockwave lithotripsy for treatment of her left renal calculus. Informed consent was obtained. The patient was taken to the operating room and placed on the operating room table. Anesthesia monitored the head, neck, airway, IV access, vital signs throughout the case. Once anesthesia was appropriately administered the patient was lined with a lithotripter and the stone was identified using fluoroscopic visualization. The stone is approximately 5-6 mm in size. It frequently moves as a result of the lithotripsy. Following 2000 shocks, the stone was no longer adequately visualized and the procedure was terminated. The patient tolerated the procedure well without complication. She was awakened and taken to the recovery room in good condition. Grafts/Implants Used: none - Complications none - Admit VTE Documentation VTE Present on Admission: Yes VTE Mechan Device Prophylaxis: SCD's VTE Pharm Prophylaxis ordered?: No Reason prophylaxis not ordered:: Treatment Not Indicated
[2018-08-02] MEDS: Cefazolin 2 GM in 0.9% Normal Saline 100 ML IV (09:04)
[2018-08-02 09:50] VITALS: BP 124/72; BP 124/74; PULSE 59; RESP 16; TEMP 36.4; O2SAT 99
[2018-08-02 10:00] VITALS: BP 118/62; BP 124/74; PULSE 66; RESP 16; O2SAT 98
[2018-08-02 10:15] VITALS: BP 118/82; BP 124/74; PULSE 67; RESP 16; TEMP 36.7; O2SAT 98
[2018-08-02 11:08] VITALS: BP 122/87; BP 124/74; PULSE 49; RESP 18; TEMP 36.4; O2SAT 100
== END 2018-08-02 11:17 | disposition home or self-care (01) ==
LOC: SDC 07:33 → AC 07:35
PROVIDERS: Anesthesiology; Family Provider Family Medicine; PCP Family Medicine; Referring Provider Urology; Visit Provider Urology
PROC: (CPT 50590; principal; 2018-08-02 09:15)
DX: N20.0 Calculus of kidney (principal); N13.4 Hydroureter
CPT/HCPCS: 50590; 81025; J7120; J2405

== ENCOUNTER 2019-03-20 16:04 | Emergency (ER) | payer BC, SELFPAY ==
[2019-03-20 16:05] VITALS: BP 163/90; PULSE 89; RESP 18; TEMP 36.4; O2SAT 100; BMI 34.3
--- NOTE | 2019-03-20 16:16 | RAD_ITS ---
STUDY: X-RAY - LEFT KNEE REASON FOR EXAM: Female, 28 years old. Left knee injury TECHNIQUE: 4 view(s) of the knee. COMPARISON: None. FINDINGS: Normal visualized distal femur. Normal visualized proximal tibia and fibula. Normal proximal tibiofibular articulation. Normal medial femorotibial compartment. Normal lateral femorotibial compartment. Normal patellofemoral articulation. The soft tissue structures are unremarkable. RAD/Knee 4 or More Views IMPRESSION: Normal x-ray examination of the knee. Electronically Signed: Kelly Edwards, at 16:41 EDT Tel , Service support ,
--- NOTE | 2019-03-20 16:17 | ED.VIS.GEN ---
History of Present Illness Chief Complaint: Lower Extremity Injury Detail of Chief Complaint: Left knee injury Informant: Patient Onset: Today Context: Sudden Onset Current Severity: Moderate Maximum Severity: Moderate Narrative: Patient presents after a fall onto her left knee. She was playing in the yard with her children. One of her sons climbed over a 4-1/2 foot fence and started running toward the road. She climbed over the fence to go after him, the fence broke and she landed on her left knee. She is able to ambulate but has an antalgic gait. She denies paresthesia. She denies any other injury. Past Medical History - Allergies and Home Meds Allergies/Adverse Reactions: Allergies No Known Allergies Allergy (Verified 03/20/19 16:05) Primary Care Physician: Diana Canela MD [Primary Care Provider] - Prior records reviewed: Yes Past Medical History: - - Reviewed Lives: With Family Smoking Status: Never smoker Review of Systems General: Denies: Chills, Fever Eyes: Denies: Visual changes - bilaterally ENT: Denies: Bilateral ear pain Cardiovascular: Denies: Chest pain Respiratory: Denies: Dyspnea Gastrointestinal: Denies: Abdominal pain Musculoskeletal: Reports: Extremity Pain. Denies: Neck pain, Back pain Skin: Denies: Wounds Neurological: Denies: Parasthesia Physical Exam Vital Signs/Narrative: Vital Signs Temp Pulse Resp BP Pulse Ox 03/20/19 16:05 97.6 F L 89 18 163/90 H 100 Inital Vital Signs reviewed: Yes General: Well nourished, Well developed ENT: Moist mucous membranes Neck: Supple Cardiovascular: Regular rate, Regular rhythm Respiratory: No distress Abdomen: Soft, Nontender Extremities: - - Tenderness palpation of the anterior left knee as well as both medial and lateral joint lines. She has decreased range of motion. She is able to straight leg raise her foot off of the bed. No tenderness over the tibia or foot. Strong distal pulses and normal sensation noted. Neurological: Alert, Oriented x3 Psychological: Normal affect Diagnostic/Tx/Re-eval Impressions Knee X-Ray 03/20/19 16:16 IMPRESSION: Normal x-ray examination of the knee. Electronically Signed: Kelly Edwards, at 16:41 EDT Tel , Service support , 03/20/19 16:16 Knee 4 or More Views [RAD] Stat - Medical Decision Making Patient declined anything for pain while here. X-ray results are discussed with her. I did advise that there are many structures in the knee that are not visible on x-ray. She will be given Ubaldo wrap and crutches. She will be referred to Dr. See, on-call for [facility] for follow-up as needed. ED Disposition - Plan for ED Patient: Disposition: Home or Assisted Living Diagnosis: Contusion of left knee Instructions: Knee Sprain Referrals: Diana Canela MD [Primary Care Provider] - Angel See MD [STAFF PHYSICIAN] - 1 Week if not improving
[2019-03-20 17:22] VITALS: BP 155/89; PULSE 82; RESP 17; O2SAT 97
== END 2019-03-20 17:23 | disposition home or self-care (01) ==
PROVIDERS: Emergency Provider Emergency Medicine; Family Provider Family Medicine; PCP Family Medicine
DX: S80.02XA Contusion of left knee, initial encounter (principal); W19.XXXA Unspecified fall, initial encounter; Y93.39 Activity, other involving climbing, rappelling and jumping off; Y92.9 Unspecified place or not applicable
CPT/HCPCS: 73564; 99283

== ENCOUNTER 2019-08-10 04:52 | Emergency (ER) | payer BC, SELFPAY ==
[2019-08-10 04:52] VITALS: BP 150/78; PULSE 80; RESP 18; TEMP 37; O2SAT 99; BMI 38.7
--- NOTE | 2019-08-10 04:59 | CT_ITS ---
STUDY: CT ABDOMEN AND PELVIS WITHOUT CONTRAST REASON FOR EXAM: Female, 29 years old. RIGHT FLANK PAIN STARTED AT 2300, H/O KIDNEY STONES. RADIATION DOSAGE (If Supplied By Facility): CTDIvol = ( 19.84 ) mGy, DLP = ( 1060.66 ) mGycm TECHNIQUE: Transaxial 2.5 mm images were obtained from the dome of the diaphragm to the symphysis pubis without oral contrast, and without intravenous contrast. Sagittal and coronal images were reconstructed. This examination is limited for the evaluation of gastrointestinal, solid organs and vascular structures due to the lack of intravenous and oral contrast. There is obesity, the entirety of soft tissue is not imaged. Individualized dose optimization techniques were used for this CT. COMPARISON: CT abdomen pelvis 06/29/2018. 05/27/2018. September 05, 2012. FINDINGS: The visualized lung bases are unremarkable. The visualized portions of the heart are within normal limits. There is decreased attenuation of the liver consistent with steatosis. Normal gallbladder and extrahepatic biliary system. Normal spleen. Normal pancreas. Normal bilateral adrenal glands. Mild right hydronephrosis and hydroureter with a distal ureteral calculus is 0.6 x 0.4 x 0.5 cm at the UVJ level. Right nonobstructing 0.4 cm renal calculus. Normal left kidney. Normal visualized stomach. Normal small intestine. Normal colon. The appendix is visualized and appears normal. Normal abdominal aorta. Normal inferior vena cava. Normal retroperitoneum. Decompressed urinary bladder. Normal visualized uterus and adnexa. There are bilateral non-ureteral pelvic calcifications. Stable rectus muscle diastases.. Normal osseous structures. CT/Abdomen/Pelvis without Cont IMPRESSION: Mild right hydronephrosis and hydroureter with a distal right obstructing ureteral calculus at the UVJ. Hepatomegaly and hepatic steatosis with borderline-sized spleen, accessory splenic tissue, obesity, rectus muscle diastases, accessory splenic tissue are nonacute findings. Electronically Signed: Taylor Romero MD at 5:59 EST , Service support ,
--- NOTE | 2019-08-10 05:00 | ED.VIS.GEN ---
History of Present Illness Chief Complaint: Flank Pain Informant: Patient Onset: Yesterday Context: Gradual Onset Timing: Waxes and wanes Current Severity: Moderate Maximum Severity: Severe Narrative: Patient presents with right flank pain that started around 11 PM last evening. She had difficulty getting comfortable. She is had some nausea and vomiting secondary to pain. She did take some Tylenol couple hours ago. Patient does have a history of kidney stones and has required surgery for these previously. - Past Medical History (1) Kidney stones Status: Chronic (2) PCOS (polycystic ovarian syndrome) Status: Chronic Past Medical History - Allergies and Home Meds Allergies/Adverse Reactions: Allergies No Known Allergies Allergy (Verified 03/20/19 16:05) Primary Care Physician: Diana Canela MD [Primary Care Provider] - Prior records reviewed: Yes Lives: With Family Smoking Status: Never smoker Review of Systems General: Denies: Chills, Fever Eyes: Denies: Visual changes - bilaterally ENT: Denies: Bilateral ear pain Cardiovascular: Denies: Chest pain Respiratory: Denies: Dyspnea, Cough Gastrointestinal: Reports: Abdominal pain, Nausea, Vomiting Genitourinary: Reports: - - Bladder pressure with urination Musculoskeletal: Reports: Back pain - Right flank pain Skin: Denies: Rash Neurological: Denies: Headache Psych: Denies: Depression Hematologic: Denies: Easy bruising, Easy bleeding Allergy: Denies: Uticaria Physical Exam Vital Signs/Narrative: Vital Signs Temp Pulse Resp BP Pulse Ox 08/10/19 04:52 98.6 F 80 18 150/78 H 99 Inital Vital Signs reviewed: Yes General: Well nourished, Well developed Head: Normocephalic ENT: Moist mucous membranes Neck: Supple Cardiovascular: Regular rate, Regular rhythm Respiratory: No distress, CTA bilaterally Abdomen: Soft, Tender - Mild tenderness in the left lower quadrant., Hypoactive bowel sounds Back: CVA tenderness - Left CVA tenderness. Extremities: Nontender Skin: Normal color, No rash Neurological: Alert, Oriented x3 Psychological: Normal affect Diagnostic/Tx/Re-eval Impressions Abdomen/Pelvis CT 08/10/19 04:59 IMPRESSION: Mild right hydronephrosis and hydroureter with a distal right obstructing ureteral calculus at the UVJ. Hepatomegaly and hepatic steatosis with borderline-sized spleen, accessory splenic tissue, obesity, rectus muscle diastases, accessory splenic tissue are nonacute findings. Electronically Signed: Taylor Romero MD at 5:59 EST , Service support , 08/10/19 04:59 Abdomen/Pelvis without Cont [CT] Stat Laboratory Results 08/10/19 08/10/19 08/10/19 05:00 05:00 05:00 WBC 12.4 H RBC 4.38 Hgb 12.1 Hct 37.5 MCV 85.6 MCH 27.6 MCHC 32.3 RDW Std Deviation 39.8 RDW Coeff of Sakina 12.9 Plt Count 264 MPV 10.0 Immature Gran % (Auto) 0.500 Neut % (Auto) 72.4 H Lymph % (Auto) 20.2 Calloway % (Auto) 5.9 Eos % (Auto) 0.9 Baso % (Auto) 0.1 Absolute Neuts (auto) 9.0 H Absolute Lymphs (auto) 2.51 Nucleated RBC % 0 Sodium 138 Potassium 4.8 Chloride 107 Carbon Dioxide 26.0 Anion Gap 5 BUN 16 Creatinine 0.94 Estim Creat Clear Calc 76.26 Est GFR (MDRD) Af Amer 90 Est GFR (MDRD) Non-Af 75 BUN/Creatinine Ratio 17.0 Glucose 129 H Calcium 9.0 Serum , Qual NEGATIVE Urine Color Urine Clarity Urine pH Ur Specific Bellflower Urine Protein Urine Glucose (UA) Urine Ketones Urine Occult Blood Urine Nitrite Urine Bilirubin Urine Urobilinogen Ur Leukocyte Esterase Urine RBC Urine WBC Ur Squamous Epith Cells Urine Bacteria Urine Mucus 08/10/19 05:02 WBC RBC Hgb Hct MCV MCH MCHC RDW Std Deviation RDW Coeff of Sakina Plt Count MPV Immature Gran % (Auto) Neut % (Auto) Lymph % (Auto) Calloway % (Auto) Eos % (Auto) Baso % (Auto) Absolute Neuts (auto) Absolute Lymphs (auto) Nucleated RBC % Sodium Potassium Chloride Carbon Dioxide Anion Gap BUN Creatinine Estim Creat Clear Calc Est GFR (MDRD) Af Amer Est GFR (MDRD) Non-Af BUN/Creatinine Ratio Glucose Calcium Serum , Qual Urine Color Yellow Urine Clarity Sl. Cloudy Urine pH 7.0 Ur Specific Bellflower 1.020 Urine Protein 15 H Urine Glucose (UA) Normal Urine Ketones Negative Urine Occult Blood 150 H Urine Nitrite Negative Urine Bilirubin Negative Urine Urobilinogen Normal Ur Leukocyte Esterase 100 H Urine RBC 10-25 SEEN Urine WBC 10-25 SEEN Ur Squamous Epith Cells 5-10 SEEN Urine Bacteria 0 SEEN Urine Mucus 0 SEEN - Medical Decision Making Patient was given morphine, Toradol, Zofran, and IV fluids. On repeat evaluation she is resting comfortably. She states her pain is improved but is now back up to about a 5. She will be given another dose of pain medication. Test results are discussed with her. Stone is at the UVJ now. I do believe she is unable to pass the stone. She will be written for pain medication, antiemetics, Flomax at home. She is known to Dr. Mcneil and will follow-up as needed. ED Disposition - Plan for ED Patient: Disposition: Home or Assisted Living Diagnosis: Kidney stone Instructions: KIDNEY STONE w/ Colic Prescriptions: Tamsulosin HCl [Flomax] 0.4 mg PO DAILY #7 capsule Hydrocodone Bitart/Apap 5-325 [Pray 5MG-325MG] 1 tablet PO Q6H PRN PRN 3 Days #10 tablet PRN Reason: Pain Ketorolac [Toradol] 10 mg PO Q6H PRN #14 tablet PRN Reason: Pain Score 4-10/10 Ondansetron [Zofran Odt] 4 mg PO Q8H PRN PRN #10 tablet PRN Reason: Nausea Referrals: Lenora Mcneil MD [STAFF PHYSICIAN] - 3-5 Days if not improving
[2019-08-10] MEDS: Morphine 4 MG/ML Syringe IV (05:04)
[2019-08-10] MEDS: Ondansetron 4 MG/2 ML Vial IV (05:04)
[2019-08-10] MEDS: Ketorolac 30 MG/ML Syringe IV (05:04)
[2019-08-10] MEDS: 0.9% Normal Saline 1,000 ML 250 ML IV (05:05)
[2019-08-10 05:06] LABS: Absolute Lymphocyte Count 2.51 X10^3/uL (0.83-4.51); Basophil# 0.01 X10^3/uL; Basophil% 0.1 % (0-1); Eosinophil# 0.11 X10^3/uL; Eosinophils% 0.9 % (0-5); Hematocrit 37.5 % (37-47); Hemoglobin 12.1 g/dL (12.0-15.0); Lymphocyte # 2.51 X10^3/ul (4.0); Lymphocyte % 20.2 % (19-41); Mean Corp Hgb Conc 32.3 g/dL (32-36); Mean Corpuscular Hgb 27.6 pg (27.0-32.0); Mean Corpuscular Volume 85.6 fL (81-99); Monocyte# 0.73 X10^3/uL; Monocyte% 5.9 % (0-10); NRBC Flagged by Analyzer 0 % (0-5); Neutrophil # 9.02 X10^3/uL (2.7-7.7); Neutrophil % 72.4 % (47-70); Platelet Count 264 K/mm3 (150-450); RBC Distribution Width CV 12.9 % (11.6-14.6); RBC Distribution Width SD 39.8 fl (35.1-43.9); Red Blood Count 4.38 M/mm3 (4.2-5.4); White Blood Count 12.4 K/mm3 (4.4-11.0)
[2019-08-10 05:11] LABS: Bacteria 0 SEEN /hpf (None Seen); Mucous, Urine 0 SEEN /hpf (<or=2+)
[2019-08-10 05:13] LABS: Color, Urine Yellow (Yellow); Glucose, Dipstick Normal (Normal); Ketone-Dipstick Negative (Negative); Leukocyte Esterase-Dipstick 100 /ul (Negative); Nitrite-Dipstick Negative (Negative); Occult Blood-Urine 150 /ul (Negative); Protein-Dipstick 15 mg/dl (Negative); Urine Bilirubin Dipstick Negative (Negative); Urine Clarity Sl. Cloudy (Clear); Urine Urobilinogen Normal (Normal)
[2019-08-10 05:19] LABS: Red Blood Cells-Urine 10-25 SEEN /hpf (0-5); Squamous Epithelial Cells - UA 5-10 SEEN /hpf (5-10); White Blood Cells 10-25 SEEN /hpf (0-5)
[2019-08-10 05:21] LABS: Anion Gap 5 (5-15); BUN 16 mg/dL (7-18); Chloride 107 mmol/L (98-107); Creatinine, Serum 0.94 mg/dL (0.55-1.02); EST Glomerular Filtration Rate 75 mL/min (>60); Est Glom Filt Rate - Afr Amer 90 mL/min (>60); Estimated Creatinine Clearance 76.26 ml/min; Glucose 129 mg/dL (74-106); Potassium 4.8 mmol/L (3.5-5.1); Sodium Level 138 mmol/L (136-145)
[2019-08-10 05:23] LABS: Internal QC Validated? YES +Cl - CLEAR BKGD; Pregnancy, Serum, hCG Quali. NEGATIVE Negative
[2019-08-10 07:00] VITALS: BP 138/78; PULSE 84; RESP 16; O2SAT 97
== END 2019-08-10 07:16 | disposition home or self-care (01) ==
PROVIDERS: Emergency Provider Emergency Medicine; PCP Family Medicine
DX: N13.2 Hydronephrosis with renal and ureteral calculous obstruction (principal); E28.2 Polycystic ovarian syndrome; E66.9 Obesity, unspecified; K76.0 Fatty (change of) liver, not elsewhere classified; Z87.442 Personal history of urinary calculi
CPT/HCPCS: 74176; 80048; 81001; 84703; 85025; 96361; 96374; 96375; 96376; 99284; J7030; A4216; J2405

== ENCOUNTER → 2020-10-03 10:29 | Outpatient (CLI) | payer BC, SELFPAY ==
[2020-10-03 12:08] LABS: Color, Urine Yellow (Yellow); Glucose, Dipstick Normal (Normal); Ketone-Dipstick Negative (Negative); Leukocyte Esterase-Dipstick 100 /ul (Negative); Nitrite-Dipstick Negative (Negative); Occult Blood-Urine Negative /ul (Negative); Protein-Dipstick Negative (Negative); Urine Bilirubin Dipstick Negative (Negative); Urine Clarity Clear (Clear); Urine Urobilinogen Normal (Normal)
[2020-10-03 12:17] LABS: Erythrocyte Sedimentation Rate 43 mm/hr (0-30)
[2020-10-03 12:40] LABS: Rheumatoid Factor < 10.0 IU/mL (<15); T4 Free Direct 1.14 ng/dL (0.76-1.46); Thyroid Stim Hormone (TSH) 1.56 uIU/mL (0.358-3.74)
[2020-10-04 20:24] LABS: ANTINUCLEAR ANTIBODIES DIRECT Negative (Negative)
[2020-10-05 07:25] LABS: CCP IgG Antibodies 7 units (0-19)
== END ==
LOC: MTLAB 10:31
PROVIDERS: PCP Family Medicine; Referring Provider Family Medicine; Visit Provider Family Medicine
DX: M13.0 Polyarthritis, unspecified (principal)
CPT/HCPCS: 36415; 81002; 84439; 84443; 85652; 86038; 86140; 86200; 86431

== ENCOUNTER 2021-03-25 19:17 | Emergency (ER) | payer OTHER, SELFPAY ==
[2021-03-25 19:18] VITALS: BP 99/66; PULSE 98; RESP 18; TEMP 37.5; O2SAT 95; BMI 36.6
--- NOTE | 2021-03-25 21:47 | EX.ED.DYSGE1 ---
HPI History of Present Illness Chief Complaint: General Illness Informant: patient Narrative Narrative: 31-year-old female presents to the emergency room with 2 complaints. The first is that she has had a cyst on her left labia for about 4 days and its increasingly getting bigger and more painful. The second problem is that she has been sick for about 1-1/2 weeks. She notes intermittent fevers cough myalgias headache diarrhea nausea and vomiting. She is not vaccinated against Covid. PFSH PFSH Medical History no medical history Home Medications ketorolac 10 mg PO Q6H PRN #14 tab 08/10/19 [Rx Last Taken Unknown] ondansetron 4 mg PO Q8H PRN PRN #10 tab 08/10/19 [Rx Last Taken Unknown] tamsulosin 0.4 mg PO DAILY #7 cap 08/10/19 [Rx Last Taken Unknown] hydrocodone-acetaminophen 1 tab PO Q6H PRN PRN 3 Days #12 tablet 03/25/21 [Rx Last Taken Unknown] Allergy/AdvReac Type Severity Reaction Status Date / Time No Known Allergies Allergy Verified 03/25/21 19:22 Family History no significant family his Surgical History no surgical history Social History (Updated 03/25/21 @ 21:[address] Yonathan Brown, DO) Smoking Status: Never smoker substance use type: does not use ROS ROS ED Constitutional Constitutional ED: Reports fever(s); Denies chills or weight loss Eyes Eyes: Denies change in vision or diplopia ENT ENT ED: Reports rhinorrhea; Denies ear pain or sore throat Cardiovascular Cardiovascular: Denies chest pain, orthopnea, palpitations or racing heartbeat Respiratory/Chest Respiratory/Chest: Reports cough; Denies dyspnea or orthopnea Gastrointestinal Gastrointestinal: Reports diarrhea, nausea and vomiting; Denies abdominal pain Genitourinary Genitourinary ED: Reports other Details: See history of present illness ; Denies dysuria, hematuria or urinary frequency Musculoskeletal Musculoskeletal: Reports myalgias; Denies arthralgias Integumentary Denies abscess or rash Neurologic Neurologic: Reports headache(s); Denies weakness Psychiatric Psychiatric: Denies anxiety, depression, suicidal ideation or suicidal thoughts Endocrine Endocrinology: Denies polydipsia, polyphagia or polyuria Allergic/Immunologic Allergic/Immunologic ED: Denies mouth swelling, tongue swelling or urticaria EXAM Physical Exam Const Vital Signs: 03/25/21 19:18 03/25/21 22:21 Temperature 99.5 F H Temperature Source Temporal Pulse Rate 98 83 Respiratory Rate 18 15 Blood Pressure 99/66 117/68 Blood Pressure Mean 77 84 Pulse Ox 95 96 Oxygen Delivery Method Room Air Room Air Positive well nourished, well developed and obese General Appearance ED: well developed Nutritional Appearance: obese HEENT Reports normocephalic, head/scalp atraumatic and moist mucous membranes Eyes PERRL and EOMs intact bilaterally Neck no lymphadenopathy, supple and no JVD Resp normal respiratory effort and clear to auscultation bilaterally Cardio regular rate, regular rhythm and no murmurs GI normal to inspection, nondistended, normoactive bowel sounds and non-tender Palpation: soft Narrative: There is a left labial cyst consistent with a Bartholin abscess. Back/Spine no CVA tenderness and normal ROM Extremity normal to inspection General Extremety ED: Negative for edema General Extremity: Negative for edema Neuro oriented x3 and CN's II-XII intact bilaterally Sensorium / Orientation: alert Motor Exam: strength 5/5 throughout Psych mental status grossly normal Mood & Affect: Negative for depressed or tearful Skin no rashes or lesions noted and no wounds MDM MDM MDM Narrative Medical decision making narrative: Patient is Covid positive. Let was applied to the area. Then 1% lidocaine was instilled into the wound. An 11 blade was used to make a linear incision. This resulted in drainage of a significant amount of purulent material. Wound was probed for loculations and irrigated. Quarter-inch packing was placed. Patient will be prescribed pain medication. As she is Covid positive she most likely will be able to follow-up with gynecology right away. Someone have her pull the packing on day 3 or return to the emergency department if any concerns Discharge Plan Triage Chief Complaint: General Illness ED Provider: Yonathan Brown Dx/Rx/DC Orders Clinical Impression: COVID-19, Abscess of left Bartholin's gland Instructions: Coronavirus Disease 2019 (COVID-19): Caring for Yourself or Others, Bartholin Cyst and Abscess Prescriptions: New hydrocodone-acetaminophen [hydrocodone-acetaminophen] 1 TABLET tablet 1 tab PO Q6H PRN PRN (Reason: Pain) 3 Days Qty: 12 RF: 0 No Action ketorolac 10 MG tablet 10 mg PO Q6H PRN (Reason: Pain Score 4-10/10) Qty: 14 RF: 0 ondansetron 4 MG tablet 4 mg PO Q8H PRN PRN (Reason: Nausea) Qty: 10 RF: 0 tamsulosin 0.4 MG capsule 0.4 mg PO DAILY Qty: 7 RF: 0 Primary Care Provider: Diana Canela Referrals: Diana Canela MD [Primary Care Provider] - As Needed Eleanor Aguilar MD [STAFF PHYSICIAN] - (in 3 days for wound check) Disposition Disposition: Home, Self Care
[2021-03-25] MEDS: Lidocaine/Epi/Tetracaine 50 ML 1 APPLIC TOPICAL (22:02)
[2021-03-25 22:21] VITALS: BP 117/68; PULSE 83; RESP 15; O2SAT 96
[2021-03-25] MEDS: Lidocaine 1% (20 ml mdv) 20 ML Vial INFILT (22:30)
== END 2021-03-25 23:18 | disposition home or self-care (01) ==
PROVIDERS: Emergency Provider Emergency Medicine; PCP Family Medicine
DX: U07.1 COVID-19 (principal); N75.1 Abscess of Bartholin's gland; E66.9 Obesity, unspecified
CPT/HCPCS: 10060; 87426; 99282

== ENCOUNTER → 2021-10-17 | Outpatient (CLI) | payer OTHER, SELFPAY ==
[2021-10-24 11:07] LABS: HPV APTIMA, High Risk Negative (Negative)
== END | disposition home or self-care (01) ==
LOC: LABSPEC 12:24
PROVIDERS: PCP Family Medicine; Visit Provider Obstetrics & Gynecology
DX: Z12.4 Encounter for screening for malignant neoplasm of cervix (principal)
CPT/HCPCS: 87624; 88175; G0145

== ENCOUNTER → 2022-09-30 | Outpatient (CLI) | payer BC, SELFPAY ==
[2022-10-07 12:08] LABS: HPV APTIMA, High Risk Negative (Negative)
== END | disposition home or self-care (01) ==
PROVIDERS: PCP Family Medicine; Referring Provider Obstetrics & Gynecology; Visit Provider Obstetrics & Gynecology
DX: Z12.4 Encounter for screening for malignant neoplasm of cervix (principal)
CPT/HCPCS: 87624; 88175; G0145

== ENCOUNTER → 2023-03-25 | Outpatient (CLI) | payer BC, SELFPAY ==
[2023-03-25 10:25] LABS: hCG Titer Quant., Serum < 1 mIU/mL (1-3)
== END | disposition home or self-care (01) ==
PROVIDERS: PCP Family Medicine
DX: Z31.41 Encounter for fertility testing (principal)
CPT/HCPCS: 36415; 84702

== ENCOUNTER → 2023-05-28 | Outpatient (CLI) | payer OTHER, SELFPAY ==
[2023-06-01 21:06] LABS: Chlamydia By Nucleic Acid AMP Negative (Negative); Gonococcus By Nucleic Acid AMP Negative (Negative)
== END | disposition home or self-care (01) ==
LOC: LABSPEC 16:49
PROVIDERS: PCP Family Medicine; Referring Provider Advanced Practice Midwife; Visit Provider Advanced Practice Midwife
DX: Z33.3 Pregnant state, gestational carrier (principal)
CPT/HCPCS: 87086; 87088; 87491; 87591

== ENCOUNTER → 2023-06-04 | Outpatient (CLI) | payer OTHER, SELFPAY ==
--- OUTSIDE RECORDS SUMMARY | 2023-06-04 11:35 | XMS RPT_ITS | CCD ---
Author Name Unknown Address [address] [place] [address] Organization [facility] Care Team Providers Care Clinical Program Director Name Role Phone Unavailable Primary Care Provider Unavailabl e YOZIPOVICH, NICOLASA A Referring Unavailable ATTARAN, RHONDA Referring Unavailable YOZIPOVICH, NICOLASA A Referring Unavailable ATTARAN, RHONDA Attending Unavailable ATTARAN, RHONDA Attending Unavailable ATTARAN, RHONDA Referring Unavailable YOZIPOVICH, NICOLASA A Attending Unavailable YOZIPOVICH, NICOLASA A Referring Unavailable YOZIPOVICH, NICOLASA A Referring Unavailable ATTARAN, RHONDA Referring Unavailable ATTARAN, RHONDA Referring Unavailable ATTARAN, RHONDA Referring Unavailable ATTARAN, RHONDA Attending Unavailable ATTARAN, RHONDA Referring Unavailable Medications Current Medications Medication Drug Class(es) Dates Sig (Normalized) Sig (Original) progesterone 50 mg/ml injectable solution (9 sources) Progesterone Start: 03-25-2023 End: 07-27-2023 inject 1 mL by intramuscular injection once daily in the morning progesterone 50 mg/mL injection Indications: Encounter for procreative management and counseling for person acting as gestational surrogate , Procreative management Inject 1 mL intramuscularly once daily. Inject in the morning 30 mL 2 04/28/2023 07/27/2023 Active Completed/Discontinued Medications Medication Drug Class(es) Dates Sig (Normalized) Sig (Original) estradiol 2 mg oral tablet (11 sources) Estrogen Start: 03-19-2023 take 1 tablet by mouth three times daily estradiol (ESTRACE) 2 mg tablet Indications: Encounter for procreative management and counseling for person acting as gestational surrogate , Procreative management Take 1 tablet by mouth three times a day. 90 tablet 2 03/19/2023 Active Problems Problem Classification Problem Date Documented Da te Episodic/Chronic Contraceptive and procreative management (20 sources) Patient encounter status; Translations: [Encounter for procreative management and counseling for gestational carrier] Onset: 11-26-2022 Episodic Female infertility (2 sources) Female infertility; Translations: [Female infertility, unspecified] 03-22-2023 Chronic Other and delivery including normal (6 sources) test positive; Translations: [Encounter for test, result positive] Onset: 05-05-2023 04-28-2023 Episodic Other screening for suspected conditions (not mental disorders or infectious disease) (1 source) Encounter for test, result unknown; Translations: [ examination or test, unconfirmed] Onset: 04-28-2023 Episodic Unclassified (1 source) No additional problems on file Results Test Name Value Interpretation Reference Range Facil ity Vital Signs Date Time Vital Sign Value Performing Clinician Endy lunsford 11-26-2022 09:26-0400 Body weight 86.18 kg Rhonda Weinstein MD Work Phone: [facility] Encounters Encounter Date Encounter Type Care Provider Facility Start: 05-12-2023 End: 05-12-[address] [facility] Facility:[facility] Start: 05-06-2023 End: 05-06-2023 ambulatory [facility] Facility:[facility] Start: 05-05-2023 End: 05-06-[address] [facility] Facility:[facility] Start: 04-28-2023 End: 04-28-2023 Telemedicine consultation with patient [facility] Work Phone: [facility] Start: 04-28-2023 End: 04-29-2023 ambulatory [facility] Work Phone: Reproductive Endocrinology Infertility Procedures Date Procedure Procedure Detail Performing Clinician Start: 11-26-2022 Antibody screen Nicolasa king [employer]ED [email or web address] Work Phone: Start: 11-26-2022 Antibody screen NICOLASA KING Plan of Treatment Date Care Activity Detail Author Start: 04-28-2023 End: 07-28-2023 Choriogonadotropin.be ta subunit [Units/volume] in Serum or Plasma HCG QUANTITATIVE Lab STAT Encounter for test, result positive Surrogate Expected: 04/28/2023, Expires: 07/28/2023 [facility] Work Phone: Payers Date Payer Category Payer Private Health Insurance [place] [employer] PPO TPA [id number] 2023-Present [address] [place] [address] PPO [id number] 2023 Private Health Insurance [id number] 2022 Unknown [employer] PPO [id number] 2022-Present [phone] [address] [place] [address] PPO [id number] 2022 Unknown [id number] Social History Date Type Detail Facility Tobacco smoking stat [facility] Tobacco smoking consumption unknown [facility] Start: 02-16-1988 End: 1990 Sex Assigned At Not on file [facility] Start: 11-26-2022 Tobacco smoking stat [facility] Never smoked tobacco [facility] Start: 11-26-2022 Tobacco use and exposure Smoke less tobacco non-user [facility] Start: 11-26-2022 End: 04-28-2023 Alcohol intake Ex-drinker (finding) [facility] Start: 11-26-2022 End: 04-28-2023 History of Social function [facility] Start: 11-26-2022 End: 04-28-2023 Tobacco use panel [facility] National Score (1-10 0), lower number is lower risk [address] [facility] Start: 1990 Sex Assigned At Female C [facility] Start: 03-22-2023 Gender identity Identifies as female gender (finding) [facility] Start: 03-22-2023 Sexual orientation Heterosexual (perez william) [facility] Medical Equipment Procedure Code Equipment Code Equipment Origin al Text Equipment Identifier Dates Start: 03-25-2023 End: 04-24-2023 Clinical Notes 11-09-2022 to 05-12-2023 Telephone Encounter - Nicolasa Orona, REED [email or web address] - 04/28/2023 4:16 PM Nicolasa Olivas APRN.CNP - 04/28/2023 2:20 PM Selena Gilmore - 04/14/2023 2:01 PM EST Note Date & Type Note Facility 05-12-2023 Note HNO ID: [id number] Author: Lottie Pantoja RN Service: ? Author Type: Registered Nurse Type: Progress Notes Filed: 05/14/2023 11:01 AM Note Text: Pt here for scan s/p FET on 04/14/23 of 1 embryos. According to transfer date pt should measure 6w5d. According to scan today pt measuring 6w5d Preliminary scan today read gestational sac present, yolk sac present, embryo present FHT: 124 Pt will continue taking hormones until 10 weeks GA: 06/03/23 Pt will continue taking PNV Pt aware to call and schedule appt to move on to OB. Lottie Pantoja RN May 12, 2023 10:47 AM [facility] 05-05-2023 Note HNO ID: [id number] Author: Nicolasa Orona APRN.CNP Service: ? Author Type: Nurse Practitioner Type: Progress Notes Filed: 05/05/2023 6:03 PM Note Text: Component hCG Quantitative, Blood Latest Ref Rng AND Units <5.0 mIU/mL 04/28/2023 1,211.0 (H) 05/05/2023 13,545.0 (H) fet ON 04-14-23 GESTATIONAL AGE= 5 WEEKS 5 DAYS PLAN- bcg #2 [facility], PLAN-OB SCAN IN 1 WEEK..05-12-23 at 9:30am jeronimo;l megna lIP and also send message to [facility] for OB [facility]. patient thinks it may be covered, will look into biling for FET, I think I gave to duc or Jocelyn 1-2 weeks ago, will do again since I was asked again today. Nicolasa Orona APRN.CNP May 05, 2023 5:42 PM [facility] 04-28-2023 Note HNO ID: [id number] Author: Nicolasa Orona APRN.CNP Service: ? Author Type: Nurse Practitioner Type: Progress Notes Filed: 04/28/2023 3:42 PM Note Text: surrogate for her in-laws, SAWYER on 04-14-23 had blood drawn for BHCG [place]. no result yet, will probably not be resulted until later. plan- phone call to lab client service to see when it will be resulted. Lab just got resulted G-4p-3 x 3 Component hCG Quantitative, Blood Latest Ref Rng AND Units <5.0 mIU/mL 04/28/2023 1,211.0 (H) Component Latest Ref Rng AND Units 11/26/2022 ABO A Rh(D) Positive Antibody Screen Negative Type+Scr Expiration 11/29/2022 23:59 Historical Ab Scr Status NEGATIVE feels fine, no problems or concerns. plan- stay on medications repeat BHCG 1 week at same [place] [facility] lab that she went to get refills on Progesterone oil and syringes and needles from [facility]. calltoday so she can get on Wednesday. she has 1 vail unopened. get refills on Estrace from local pharmcy. call if any prblmes or concerns. BHCG order in [facility] and letters in case needed. message was left on IP phone Helen shelton. calif any problems or concerns. Nicolasa Orona APRN.CNP April 28, 2023 3:29 PM . [facility] 04-28-2023 Miscellaneous Notes spoke to patient, they can call for the refills, best to call soon so shipping can occur, plan- I called [facility] and IP called to get the meds sent can get 3 vials or 6 vial so they do not need to refill next month, but will have enough on hand. Nicolasa Orona APRN.CNP April 28, 2023 4:19 PM The following prescriptions have been called to [facility] pharmacy 04/28/2023 at 4:22 PM by Nicolasa Orona APRN.CNP. I spoke with pharmacist in the pharmacy. can get 3 vial or 6 whatever they want to pay for, Requested Prescriptions Signed Prescriptions Disp Refills progesterone 50 mg/mL injection 30 mL 2 Sig: Inject 1 mL intramuscularly once daily. Inject in the morning Authorizing Provider: NICOLASA ORONA Needle, Disp, 22 G 22 gauge x 1 1/2 30 Each 2 Sig: To be used to inject progesterone in oil Authorizing Provider: NICOLASA ORONA Syringe with Needle, Disp, (SYRINGE 3CC/20GX1 ) 3 mL 20 gauge x 1 30 Each 2 Sig: To be used to draw up Progesterone in oil Authorizing Provider: NICOLASA ORONA APRN.CNP April 28, 2023 4:22 PM documented in this encounter [facility] 04-28-2023 History of Presen t illness Narrative surrogate for her in-laws, SAWYER on 04-14-23 had blood drawn for BHCG [place] [facility]. no result yet, will probably not be resulted until later. plan- phone call to lab client service to see when it will be resulted. Lab just got resulted G-4p-3 x 3 Component hCG Quantitative, Blood Latest Ref Rng & Units <5.0 mIU/mL 04/28/2023 1,211.0 (H) Component Latest Ref Rng & Units 11/26/2022 ABO A Rh(D) Positive Antibody Screen Negative Type+Scr Expiration 11/29/2022 23:59 Historical Ab Scr Status NEGATIVE feels fine, no problems or concerns. plan- stay on medications repeat BHCG 1 week at [facility] lab that she went to get refills on Progesterone oil and syringes and needles from [facility]. calltoday so she can get on Wednesday. she has 1 vail unopened. get refills on Estrace from local pharmcy. call if any prblmes or concerns. BHCG order in [facility] and letters in case needed. message was left on IP phone Helen shelton. calif any problems or concerns. Nicolasa Orona APRN.CNP April 28, 2023 3:29 PM . documented in this encounter [facility] 04-19-2023 Miscellaneous Notes it was tijme for a refill nad she has 1 more to get when needed in 30m days. I spoke to pharmacist and she said patient picked up yesterday, which is fine. Nicolasa Orona APRN.CNP April 19, 2023 10:48 AM documented in this encounter [facility] 04-19-2023 Miscellaneous Notes I spoke to pharmacist, patient picked up the rx, and alos has 1 refill in 30 days, does not need any other autorization for this April 19, 2023 10:45 AM documented in this encounter [facility] 04-19-2023 Miscellaneous Notes I sp[tiffany to pharmacist, patient already picked up her rx , ahs has 1 more refill per pharmacist., this is the automatice rx refill. which patietnn needs.Nicolasa Orona APRN.CNP April 19, 2023 10:43 AM documented in this encounter [facility] 04-14-2023 Note HNO ID: [id number] Author: Rhonda Weinstein MD Service: ? Author Type: Physician Type: Procedures Filed: 04/14/2023 2:44 PM Note Text: [facility]I MARTÍN TRANSFER PROCEDURE NOTE Date: 04/14/2023 Primary Proceduralist: Rhonda Weinstein MD Soil Specialist(s): Not applicable Informed Consent: Indications: Vel Walsh, is a 33 year old female here today for Embryo Transfer. Donnelly Protocol: UNIVERSAL PROTOCOL / SAFETY CHECKLIST Procedure to be Performed: embryo transfer Sign In: A Moment of CARE was completed. Personnel directly involved with the procedure wore the appropriate PPE (Personal Protective Equipment). Patient/Surrogate Stated/Verified: PATIENT VERIFIED(optional for EMERGENT procedures): Patient name, Date of , Relevant allergies, and The intended procedure Time Out Communication: Intended patient and procedure match the source documents. Consent documented and matches the intended procedure. Sign Out: SIGN OUT (optional for EMERGENT procedures): No specimen collected. Rhonda Weinstein MD TRANSFER Transfer Date: 04/14/23 Transfer Procedure: Embryo Transfer Transfer Physician: Rhonda Weinstein M.D. Pre-Procedure Diagnosis: Infertility Post-Procedure Diagnosis: Infertility Source of embryos: Donor Fresh or Frozen Embryos?: Frozen Embryos Total Thawed: 1 # of Embryos Transferred: 1 ASRM Guidelines: Recommended limits adhered to Catheter Type: Flores Ease of Transfer: Easy Direction: Mid Distance from fundus (mm): 11 Tissue Status: Cleared by FDA Guidelines Cell Stage: Grade: PGT?: Specimens: None I/primary surgeon/proceduralist performed the entire procedure. SIGNATURE: Rhonda Weinstein MD PATIENT NAME: Vel Walsh DATE: April 14, 2023 TIME: 2:44 PM [facility] 04-14-2023 Note HNO ID: [id number] Author: Selena Lynch Service: ? Author Type: Technologist Type: Progress Notes Filed: 04/14/2023 2:02 PM Note Text: Embryo Transfer procedure performed. Detailed notes can be found in the paper chart in the [facility] - CARD TAPE CONVERTER OPERATOR Office. Selena Lynch [facility] 04-14-2023 History of Presen t illness Narrative Embryo Transfer procedure performed. Detailed notes can be found in the paper chart in the [facility] - CARD TAPE CONVERTER OPERATOR Office. Selena Lynch documented in this encounter [facility] 04-05-2023 Note HNO ID: [id number] Author: Nicolasa Orona APRN.CNP Service: ? Author Type: Nurse Practitioner Type: Progress Notes Filed: 04/05/2023 9:35 PM Note Text: The patient is here today for follicular ultrasound and blood work. The patient reports no problems or complaints. Ultrasound and blood will be reviewed by the physician, the flow sheet will be updated and instructions will be communicated to the patient. Nicolasa Orona APRN.CNP see linong= 9.3 triple . Component Latest Ref Rng AND Units 04/05/2023 Estradiol 17B pg/mL 269 Progesterone See comment ng/mL 0.4 REVIEWED progesterone Im, demonstrated understanding, ability and interest to do the injection, patient has progesterone oil and supplies. needs medrol and doxy from local pharmacy. jeronimo send Twitter message and call once date of fet determined,. Nicolasa Orona APRN.CNP April 05, 2023 12:28 PM The following approved medication requests have been transmitted electronically. to [facility]. Requested Prescriptions Signed Prescriptions Disp Refills doxycycline (VIBRA-TABS) 100 mg tablet 8 tablet 0 Sig: Take 1 tablet by mouth two times a day. when instructed methylPREDNISolone (MEDROL) 16 mg tablet 4 tablet 0 Sig: Take 1 tablet by mouth once daily. when instructed to begin Nicolasa Orona APRN.CNP spoke to patient, sent my chart message. Nicolasa Orona APRN.CNP April 05, 2023 3:45 PM [facility] 04-01-2023 Note HNO ID: [id number] Author: Nicolasa Orona APRN.CNP Service: ? Author Type: Nurse Practitioner Type: Progress Notes Filed: 04/01/2023 6:02 PM Note Text: UPDATED EPISODE, IP WOULD LIKE TRANSFER ON 04-14-23 IF LINING IS GOOD ON 04-05-23, WOULD LIKE LATEST TIME, IF POSSIBLE. Nicolasa Orona APRN.CNP April 01, 2023 6:01 PM [facility] 04-01-2023 History of Presen t illness Narrative UPDATED EPISODE, IP WOULD LIKE TRANSFER ON 04-14-23 IF LINING IS GOOD ON 04-05-23, WOULD LIKE LATEST TIME, IF POSSIBLE. Nicolasa Orona APRN.CNP April 01, 2023 6:01 PM documented in this encounter [facility] 03-29-2023 Miscellaneous Notes sent message. no charge. This patient gave consent to this Medical Advice Message and is aware that it may result in a bill to their insurance, as well as the possibility of receiving a bill for a copay and/or deductible. They are an established patient, but are not seeking information exclusively about a problem treated during an in person or video visit in the last seven days. I did not recommend an in person or video visit within seven days of my reply. See the [employer] message reply for my assessment and plan. I spent a total of <5 minutes reviewing the patient's prior medical records and current request for medical advice, prescribing medications or ordering tests (if applicable), replying to the patient, and documenting the encounter. Nicolasa Orona APRN.CNP March 29, 2023 3:23 PM documented in this encounter [facility] 03-22-2023 Miscellaneous Notes PHONE CALL TOPATIENT, SHCHEDULED SELF FOR LABS, NEEDS US AN DLABS FOR FET/ SURROGATE MONITORING IN bw ON 04-05-23 BATH NOT AVAILABLE SINCE NURSE OFF THAT DAY. PLAN- US AND E2, PROG ON 04-05-23 AT 8:45AM FAX COPY OF HER INTERNAL MEDICINE CHECK UP ON \ FROM 11-07-22, NEVER GOT SENT HERE, DENIZOS NEEDS [facility] TO CONFIRM NOT EARLY IN THIS CYCLE. Nicolasa Orona APRN.CNP March 22, 2023 5:45 PM documented in this encounter [facility] 03-22-2023 Miscellaneous Notes sent message, placed orders updated episode. will need the other medications ordered for the cycle, . Nicolasa Orona APRN.CNP March 22, 2023 9:26 AM This patient gave consent to this Medical Advice Message and is aware that it may result in a bill to their insurance, as well as the possibility of receiving a bill for a copay and/or deductible. They are an established patient, but are not seeking information exclusively about a problem treated during an in person or video visit in the last seven days. I did not recommend an in person or video visit within seven days of my reply. See the MyChart message reply for my assessment and plan. I spent a total of 10 minutes reviewing the patient's prior medical records and current request for medical advice, prescribing medications or ordering tests (if applicable), replying to the patient, and documenting the encounter. Nicolasa Orona APRN.CNP March 22, 2023 9:34 AM documented in this encounter [facility] 03-19-2023 Miscellaneous Notes left message, jeronimo megan sister -in-law. alos. sent message. Nicolasa Orona APRN.CNP March 19, 2023 8:51 PM documented in this encounter [facility] 03-16-2023 Miscellaneous Notes one associate professor of history letter received, need her associate professor of history letter , need to know LMP and how cycles are. need to know if any conflicts on schedule of life for the cycle. had MMR in december 2022. plan- message left on cell will call back later today. . Nicolasa Orona APRN.CNP March 16, 2023 4:10 PM documented in this encounter [facility] 12-02-2022 Note HNO ID: [id number] Author: Nicolasa Orona APRN.CNP Service: ? Author Type: Nurse Practitioner Type: Progress Notes Filed: 03/22/2023 10:01 AM Note Text: met face to face with couple, surrogate for sister- in- law, Gisela Shelton and Elton they met with SON Orantes done- wnmarsha, does not need mock cycle consents signed for cycle signed letter for forgiveness since embryos not made with FDA donor screening, they were made for autologous use. Nicolasa Orona APRN.CNP December 02, 2022 4:37 PM addeded note . fda questions done on couple, all negative, FDA donor labs for surrogate cycle- both all negative, will get her medical records scanned in [facility], most care done in [place]. no health problesm, web operations manager hisotry of clots, embolus or liver problems. LMp was 11-19-22 regularl every month- 26-35days. G- 3p-3 all fullterm uncomplciated deliveries. last pap 09-30-22 had vasectomy. reviewed protovl and taught IM progesteroen oil , jeronimo review during the FET cycle complete contract , associate professor of history lwtter needed before cycle begins psych was done 12-27-22 with Sandra PhD.psych all parties seen with Brianna, and cleared// MMR alos with OBg Pcp. 11-17-[address] Gutierrez in [facility], patient asked for ecord to be sent, requested today on phone by me, also . Nicolasa Orona APRN.CNP March 22, 2023 9:44 AM [facility] 12-02-2022 History of Presen t illness Narrative met face to face with couple, surrogate for sister- in- law, Gisela Shelton and Elton they met with SON Orantes done- wnmarsha, does not need mock cycle consents signed for cycle signed letter for forgiveness since embryos not made with FDA donor screening, they were made for autologous use. Nicolasa Orona APRN.CNP December 02, 2022 4:37 PM documented in this encounter [facility] 12-01-2022 Miscellaneous Notes spoke to patient. reviewed Std labs- al netative for std's, toxo- negative, cmv + IGM is negative, varicella + immunbe rubella - negative, not immune willneed MMR vaccine. A+ bloodtype had SIS 11-26-[address] weinstein December 25 - appt with Brianna Sheehan then 01-08-23 with IP - brother and sister in law Gisela Shelton and Marjan.. LM_ 11-19-22 plan - will call after psych report and then couples can work on legal consult will confirm SIS was normal and does not need mock cycle. Nicolasa Oorna APRN.CNP December 01, 2022 2:04 PM documented in this encounter [facility] 11-26-2022 Note HNO ID: [id number] Author: Rhonda Weinstein MD Service: ? Author Type: Physician Type: Progress Notes Filed: 11/26/2022 12:14 PM Note Text: Vel Walsh is a 32 year old here for SIS. Referred by: Nicolasa Orona [id number] [id number] Chief Complaint: evaluate uterine cavity Endometrial Biopsy: No Ultrasound: No Hormonal therapy: No. LMP: Patient's last menstrual period was 11/19/2022. Cycles: PERIOD REGULARITY: regular q 28-30 days Contraception: none HCG: negative UNIVERSAL PROTOCOL / SAFETY CHECKLIST Procedure to be Performed: Saline Infused sonohysterography Sign In: A Moment of CARE was completed. Personnel directly involved with the procedure wore the appropriate PPE (Personal Protective Equipment). Patient/Surrogate Stated/Verified: PATIENT VERIFIED(optional for EMERGENT procedures): Patient name, Date of , Relevant allergies, and The intended procedure Time Out Communication: Intended patient and procedure match the source documents. Consent documented and matches the intended procedure. Sign Out: SIGN OUT (optional for EMERGENT procedures): No specimen collected. Windy Martinez RN PROCEDURE: EXTERNAL GENITALIA: Normal in appearance without lesions VAGINA: Normal in appearance without lesions Speculum placed into the vagina with excellent visualization of the cervix. Anterior lip of cervix grasped with single toothed tenaculum. SIS catheter inserted into the uterus without difficulty. Speculum removed and 40mL sterile saline injected into the uterine cavity under ultrasound guidance. Procedure Summary: Patient tolerated procedure well. See ViewPoint for procedure results. Rhonda Weinstein MD [facility] 11-26-2022 Note HNO ID: [id number] Author: Rhonda Weinstein MD Service: ? Author Type: Physician Type: Progress Notes Filed: 11/27/2022 4:09 PM Note Text: Consult from: Vel Walsh is a 32 year old.G 3 P 3 Ab 0 She presents with complaint of wanting to be a surrogate for Gisela Shelton. Gisela is her sister in law. Rodrigue is Vel's and had a vasectomy. ( 02/16/1988). She had a family practice doc appointment last week and had HgA1C done in the office that was normal. No other blood work was ordered. OB History 2013- girl 2016- boy 2018- boy Menstrual Hx: Menarche: 12 Cycle length: 26-35 days Duration: 3-4 days Flow: medium Other: cramps Past Medical Hx: History reviewed. No pertinent past medical history. Past Surgical Hx: PAST SURGICAL HISTORY Procedure Laterality Date HIP SURGERY HX TONSILLECTOMY AND ADENOIDECTOMY Review of Systems: General: No weight loss, malaise or fevers Respiratory: No cough, hemoptysis, asthma, recent chest infection, wheezing Cardiovascular: No history of chest pain, palpitation, orthopnea, cyanosis, pedal edema Gastrointestinal: No blood in stool, pain with BM, tarry stool, persistent diarrhea or constipation Genitourinary: negative Endocrine: No history of thyroid disorder, diabetes, cold intolerance, heat intolerance, polydypsia Musculoskeletal: Negative I have reviewed the above past medical history and review of systems as completed by my RN. Date of History and Physical and by whom Records not here yet Date of pelvic exam and pap 10/2022 Mammogram Not needed Psychosocial evaluation Not done yet Reviewed OB records- Done and normal Blood type A + Most recent pelvic ultrasound/cavity evaluation Will be today Shared medical information- Discussed Legal contract with different liquor establishment manager- Discussed Provide examples of topics that should be clarified in contract- Discussed Describe the process to patient- Discussed Forgiveness letter- Discussed ASRM required STD testing for the surrogate. Discussed FDA medical History questionnaire Necessary Mock cycle Not necessary Assessment- desires to be a surrogate Plan- all of the above topics were discussed at length. The process of review and preparation of the surrogate and IP were discussed and addressed many good questions. All records from her prior institutions and providers were reviewed today. I spent a total of 60 minutes on the date of the service which included preparing to see the patient, [id number] patient care, completing clinical documentation, and counseling and educating the patient/family/caregiver. Rhonda Weinstein MD [facility] 11-26-2022 History of Presen t illness Narrative Vel Walsh is a 32 year old here for SIS. Referred by: Nicolasa Orona [id number] [id number] Chief Complaint: evaluate uterine cavity Endometrial Biopsy: No Ultrasound: No Hormonal therapy: No. LMP: Patient's last menstrual period was 11/19/2022. Cycles: PERIOD REGULARITY: regular q 28-30 days Contraception: none HCG: negative UNIVERSAL PROTOCOL / SAFETY CHECKLIST Procedure to be Performed: Saline Infused sonohysterography Sign In: A Moment of CARE was completed. Personnel directly involved with the procedure wore the appropriate PPE (Personal Protective Equipment). Patient/Surrogate Stated/Verified: PATIENT VERIFIED(optional for EMERGENT procedures): Patient name, Date of , Relevant allergies, and The intended procedure Time Out Communication: Intended patient and procedure match the source documents. Consent documented and matches the intended procedure. Sign Out: SIGN OUT (optional for EMERGENT procedures): No specimen collected. Windy Martinez RN PROCEDURE: EXTERNAL GENITALIA: Normal in appearance without lesions VAGINA: Normal in appearance without lesions Speculum placed into the vagina with excellent visualization of the cervix. Anterior lip of cervix grasped with single toothed tenaculum. SIS catheter inserted into the uterus without difficulty. Speculum removed and 40mL sterile saline injected into the uterine cavity under ultrasound guidance. Procedure Summary: Patient tolerated procedure well. See ViewPoint for procedure results. Rhonda Weinstein MD documented in this encounter [facility] 11-25-2022 Miscellaneous Notes phone call to patient. confirmed appt for surrogate candidate for brother and sis- in-law =gisela shelton and marjan LMP 11-19-22, period ended tomorrow jeronimo be cd 8, needs SIS for uterine evaluation. G- 3p-3 , had vasectomy plan- eat and drink in morniing, jeronimo be here 3-4 hours for std labs sis,, consults and consents, will need Psych evaluation as couple, will give referrals , see same provider as sister. will review protocol and logistics of cycle. Nicolasa Orona APRN.CNP November 25, 2022 6:05 PM documented in this encounter [facility] 11-10-2022 Miscellaneous Notes parient is surrogate candidate, states records for [facility] L&D reports and oBGYN exam and recnt pap test were faxed. no record by [facility], no records in Dr. yepez mail box., will look in IVF nurse triage room, and check with [facility] again. will get back to patient in next 2 days to update if found or not, may have to get form those providers. Nicolasa Orona APRN.CNP November 10, 2022 2:49 PM no MY chart access to patient, she declinedMy chart set up. Nicolasa Orona APRN.CNP November 10, 2022 2:54 PM documented in this encounter [facility] 11-09-2022 Miscellaneous Notes spoke to patient, plans to be surrogate for brother and si- in- law, patient stes she faxed her records about 3 weeks ago, I di not see any faxed, patient patient not working, is more available on Fridays. LM- 10-19-22 regular every 29 sdaya 3-4 days of lfow had check up / pap last month with PCP,, all negative. G-3p-3 all 's healthy full term pregnancies, 2013, 2016 2018 had vasectomy planned. 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 plan- jeronimo see where records may be will check with Dr. Weinstein if 11-26-22 ok to see this surrogate for Consult and SIS , if we have records available. Nicolasa Orona APRN.CNP November 09, 2022 10:21 AM will send message to [employer] via [facility] for consult and SIS. Nicolasa Orona APRN.CNP November 09, 2022 3:31 PM Pt is going to be a surrogate for intended parents, Gisela Shelton & Marjan Shelton. Please follow up as she would like to move forward. documented in this encounter [facility] documented [facility] Diagnosis Encounter for procreative management and counseling for person acting as gestational surrogate- Primary [facility] Diagnosis Encounter for procreative management and counseling for person acting as gestational surrogate- Primary [facility] Diagnosis Fertility testing- Primary Encounter for procreative management and counseling for person acting as gestational surrogate Encounter for fertility testing Fertility testing Pre-procedural laboratory examination [facility] Diagnosis Fertility testing- Primary Encounter for procreative management and counseling for person acting as gestational surrogate [facility] Diagnosis Procreative management- Primary Unspecified procreative management [facility] Diagnosis Encounter for procreative management and counseling for person acting as gestational surrogate- Primary Procreative management Unspecified procreative management [facility] Diagnosis Encounter for procreative management and counseling for person acting as gestational surrogate- Primary Female infertility Female infertility of unspecified origin [facility] Diagnosis Encounter for procreative management and counseling for person acting as gestational surrogate- Primary [facility] Diagnosis Encounter for procreative management and counseling for person acting as gestational surrogate- Primary [facility] Diagnosis Female infertility- Primary Female infertility of unspecified origin [facility] Diagnosis Encounter for procreative management and counseling for person acting as gestational surrogate Procreative management Unspecified procreative management [facility]* Diagnosis Encounter for test, result positive- Primary examination or test, positive result Surrogate state, incidental [facility] Diagnosis Encounter for procreative management and counseling for person acting as gestational surrogate Procreative management Unspecified procreative management documented [facility] (narrative)* Diagnostic Procedure Only (Routine) - Pending Review Specialty Diagnoses / Procedures Referred By Oliva crowder Referred To Contact [facility] Diagnoses Encounter for procreative management and counseling for person acting as gestational surrogate Procedures FOLLICULAR US WHI US PELVIC NONOBSTETRIC IMAGE DCMTN LIMITED/F/U Nicolasa Orona APRN.CNP [address] [place] [address] [facility] [address] [place] [id number] Referral ID Status Reason Start Date Expiration Date Visits Requested Visits Authorized [id number] Pending Review Auto-Generat ed Referral 3 03/21/2024 [address] [facility] Summary Purpose Family History No Family History Records Found Advance Directives No Advanced Directives Records Found Additional Source Comments Source Comments (unrecognize d section and content) In the event this informatio n is protected by the Federal Confidentiality of Alcohol and Drug Abuse Patient Records regulations: The Federal rules restrict any use of the information to criminally investigate or prosecute any alcohol or drug abuse patient.[facility] the event this information is protected by the Federal Confidentiality of Alcohol and Drug Abuse Patient Records regulations: The Federal rules restrict any use of the information to criminally investigate or prosecute any alcohol or drug abuse patient.[facility] the event this information is protected by the Federal Confidentiality of Alcohol and Drug Abuse Patient Records regulations: The Federal rules restrict any use of the information to criminally investigate or prosecute any alcohol or drug abuse patient.[facility] the event this information is protected by the Federal Confidentiality of Alcohol and Drug Abuse Patient Records regulations: The Federal rules restrict any use of the information to criminally investigate or prosecute any alcohol or drug abuse patient.[facility] the event this information is protected by the Federal Confidentiality of Alcohol and Drug Abuse Patient Records regulations: The Federal rules restrict any use of the information to criminally investigate or prosecute any alcohol or drug abuse patient.[facility] the event this information is protected by the Federal Confidentiality of Alcohol and Drug Abuse Patient Records regulations: The Federal rules restrict any use of the information to criminally investigate or prosecute any alcohol or drug abuse patient.[facility] the event this information is protected by the Federal Confidentiality of Alcohol and Drug Abuse Patient Records regulations: The Federal rules restrict any use of the information to criminally investigate or prosecute any alcohol or drug abuse patient.[facility] the event this information is protected by the Federal Confidentiality of Alcohol and Drug Abuse Patient Records regulations: The Federal rules restrict any use of the information to criminally investigate or prosecute any alcohol or drug abuse patient.[facility] the event this information is protected by the Federal Confidentiality of Alcohol and Drug Abuse Patient Records regulations: The Federal rules restrict any use of the information to criminally investigate or prosecute any alcohol or drug abuse patient.[facility] Hospital[facility] the event this information is protected by the Federal Confidentiality of Alcohol and Drug Abuse Patient Records regulations: The Federal rules restrict any use of the information to criminally investigate or prosecute any alcohol or drug abuse patient.[facility] Hospital[facility] the event this information is protected by the Federal Confidentiality of Alcohol and Drug Abuse Patient Records regulations: The Federal rules restrict any use of the information to criminally investigate or prosecute any alcohol or drug abuse patient.[facility] HospitalIn the event this information is protected by the Federal Confidentiality of Alcohol and Drug Abuse Patient Records regulations: The Federal rules restrict any use of the information to criminally investigate or prosecute any alcohol or drug abuse patient.[facility] HospitalIn the event this information is protected by the Federal Confidentiality of Alcohol and Drug Abuse Patient Records regulations: The Federal rules restrict any use of the information to criminally investigate or prosecute any alcohol or drug abuse patient.[facility] Hospital[facility] the event this information is protected by the Federal Confidentiality of Alcohol and Drug Abuse Patient Records regulations: The Federal rules restrict any use of the information to criminally investigate or prosecute any alcohol or drug abuse patient.[facility] HospitalIn the event this information is protected by the Federal Confidentiality of Alcohol and Drug Abuse Patient Records regulations: The Federal rules restrict any use of the information to criminally investigate or prosecute any alcohol or drug abuse patient.[facility] HospitalIn the event this information is protected by the Federal Confidentiality of Alcohol and Drug Abuse Patient Records regulations: The Federal rules restrict any use of the information to criminally investigate or prosecute any alcohol or drug abuse patient.[facility] HospitalIn the event this information is protected by the Federal Confidentiality of Alcohol and Drug Abuse Patient Records regulations: The Federal rules restrict any use of the information to criminally investigate or prosecute any alcohol or drug abuse patient.[facility] HospitalIn the event this information is protected by the Federal Confidentiality of Alcohol and Drug Abuse Patient Records regulations: The Federal rules restrict any use of the information to criminally investigate or prosecute any alcohol or drug abuse patient.[facility] Reason for Visit (unrecogniz ed section and content) Reason Comments outside records no one has seen thes e records faxed Reason Comments appt for surrogate consult for tomorrow confirmed appt for 11-26-[address] reeves and sis, Reason Comments Establish Care Specialty Diagnoses / Procedures Referred By Oliva crowder Referred To Contact [facility] Diagnoses Encounter for procreative management and counseling for person acting as gestational surrogate Encounter for fertility testing Procedures SONOHYSTEROGRAPHY (SIS) US WHI SALINE INFUS SONOHYSTEROGRAPHY W/COLOR DOPPLER CATH & SALINE/CONTRAST SONOHYSTER/HYSTEROSALPI URINE TEST Nicolasa Orona, REED [email or web address] [address] [place] [address] [facility] [address] [place] [address] Referral ID Status Reason Start Date Expiration Date V isits Requested Visits Authorized [id number] Closed Benefit Check Financial Clearance Required - Self Pay Patient Cleared - True Self-Pay required payment collected Do Not Bill Insurance - SP patient 11/10/2022 11/10/2023 3 1 Reason Comments lab results form surrogate screens not i mmune to rubella , needs MMR vaccine Reason Comments surrogate consult patient and together for surrogate cponsult Reason Comments Patient Update surrogate for in-law s PAT Reason Comments Patient Update lwyer letters recevi ed for the FET cycle/ surrogate Reason Comments MONITORING FOR fet PATIENT SCHEDULED LA B AT 10AM, HAVE TO COME EARLIER FOR uS AND LABS IN ivf Specialty Diagnoses / Procedures Referred By Oliva crowder Referred To Contact [facility] Diagnoses Encounter for procreative management and counseling for gestational carrier Procedures TRANSFER OF EMBRYO[place] [address] [place] [address] [facility] [address] [place] [address] Referral ID Status Reason Start Date Expiration Date Visits Requested Visits Authorized [id number] Authorized Financial Clearance Required - Self Pay Financial Clearance Not Required Do Not Bill Insurance - SP patient Patient Cleared - Qualified 100% FAS 08/04/2023 99 99 Reason Onset Date Comments Refill Request 04/17/2023 Refill Request 04/19/2023 Reason Onset Date Comments Refill Request 04/16/2023 Refill Request 04/19/2023 Reason Comments BHCG after FET/ surrogate Specialty Diagnoses / Procedures Referred By Oliva crowder Referred To Contact [facility] Diagnoses Encounter for procreative management and counseling for gestational carrier Procedures TRANSFER OF EMBRYO,[place] [address] [place] [address] [facility] [address] [place] [address] Referral ID Status Reason Start Date Expiration Date V isits Requested Visits Authorized [id number] Closed Financial Clearance Required - Self Pay Financial Clearance Not Required Do Not Bill Insurance - SP patient Patient Cleared - Qualified 100% FAS 03/23/2023 08/04/2023 99 99 Reason Onset Date Comments Refill Request 04/24/2023 INFORMATION SOURCE (unrecogn ized section and content) FOR RECORDS PERTAINING TO PATIENTS WHO ARE OR HAVE BEEN ENROLLED IN A CHEMICAL DEPENDENCY/SUBSTANCEABUSE PROGRAM, SOME INFORMATION MAY BE OMITTED. This clinical summary was aggregated from multiple sources. Caution should be exercised in using it in the provision of clinical care. This summary normalizes information from multiple sources, and as a consequence, information in this document may materially change the coding, format and clinical context of patient data. In addition, data may be omitted in some cases. CLINICAL DECISIONS SHOULD BE BASED ON THE PRIMARY CLINICAL RECORDS. [facility]. provides no warranty or guarantee of the accuracy or completeness of information in this document.
[2023-06-04 12:20] LABS: NATERA MAILED SPECIMEN
[2023-06-04 12:49] LABS: Absolute Lymphocyte Count 2.71 X10^3/uL (0.83-4.51); Absolute Neutrophil Count 8.6 X10^3/uL (2.0-7.7); Basophil# 0.02 X10^3/uL; Basophil% 0.2 % (0-1); Eosinophil# 0.48 X10^3/uL; Eosinophils% 3.8 % (0-5); Hematocrit 38.7 % (37-47); Hemoglobin 12.5 g/dL (12.0-15.0); Lymphocyte # 2.71 X10^3/ul (0.83-4.51); Lymphocyte % 21.5 % (19-41); Mean Corp Hgb Conc 32.3 g/dL (32-36); Mean Corpuscular Hgb 27.8 pg (27.0-32.0); Mean Corpuscular Volume 86.2 fL (81-99); Mean Platelet Vol. 10.4 fl (6.2-12.0); Monocyte# 0.71 X10^3/uL; Monocyte% 5.6 % (0-10); NRBC Flagged by Analyzer 0 % (0-5); Neutrophil # 8.61 X10^3/uL (2.7-7.7); Neutrophil % 68.4 % (47-70); Platelet Count 289 K/mm3 (150-450); RBC Distribution Width SD 40.4 fl (35.1-43.9); Red Blood Count 4.49 M/mm3 (4.2-5.4); White Blood Count 12.6 K/mm3 (4.4-11.0)
[2023-06-04 13:12] LABS: Hemoglobin A1c 5.7 % (3.8-5.6)
[2023-06-04 13:58] LABS: HIV - WCH Non-Reactive (Nonreactive); Hepatitis B Surface Antigen Non-Reactive (Nonreactive); Hepatitis C Antibody Non-Reactive (Nonreactive); Rubella IgG Reactive (Nonreactive); Syphilis Antibodies Non-reactive
== END | disposition home or self-care (01) ==
LOC: LAB 11:15
PROVIDERS: PCP Family Medicine; Referring Provider Advanced Practice Midwife; Visit Provider Advanced Practice Midwife
DX: O09.299 Supervision of pregnancy with other poor reproductive or obstetric history, unspecified trimester (principal); Z33.3 Pregnant state, gestational carrier; Z86.32 Personal history of gestational diabetes; Z3A.00 Weeks of gestation of pregnancy not specified
CPT/HCPCS: 36415; 83036; 85025; 86703; 86762; 86780; 86803; 86850; 86900; 86901; 87340

== ENCOUNTER → 2023-09-17 | Outpatient (CLI) | payer OTHER, SELFPAY ==
[2023-09-17 11:16] LABS: Absolute Lymphocyte Count 2.04 X10^3/uL (0.83-4.51); Absolute Neutrophil Count 8.7 X10^3/uL (2.0-7.7); Basophil# 0.03 X10^3/uL; Basophil% 0.3 % (0-1); Eosinophil# 0.16 X10^3/uL; Eosinophils% 1.4 % (0-5); Hematocrit 36.4 % (37-47); Hemoglobin 11.7 g/dL (12.0-15.0); Lymphocyte # 2.04 X10^3/ul (0.83-4.51); Lymphocyte % 17.4 % (19-41); Mean Corp Hgb Conc 32.1 g/dL (32-36); Mean Corpuscular Hgb 28.5 pg (27.0-32.0); Mean Corpuscular Volume 88.6 fL (81-99); Mean Platelet Vol. 10.5 fl (6.2-12.0); Monocyte# 0.64 X10^3/uL; Monocyte% 5.5 % (0-10); NRBC Flagged by Analyzer 0 % (0-5); Neutrophil # 8.73 X10^3/uL (2.7-7.7); Neutrophil % 74.4 % (47-70); Platelet Count 260 K/mm3 (150-450); RBC Distribution Width CV 13.7 % (11.6-14.6); RBC Distribution Width SD 44.2 fl (35.1-43.9); Red Blood Count 4.11 M/mm3 (4.2-5.4); White Blood Count 11.7 K/mm3 (4.4-11.0)
[2023-09-17 12:02] LABS: HIV - WCH Non-Reactive (Nonreactive); Syphilis Antibodies Non-reactive
== END | disposition home or self-care (01) ==
LOC: LAB 10:24
PROVIDERS: PCP Family Medicine; Referring Provider Obstetrics & Gynecology; Visit Provider Obstetrics & Gynecology
DX: Z34.90 Encounter for supervision of normal pregnancy, unspecified, unspecified trimester (principal)
CPT/HCPCS: 36415; 85025; 86703; 86780

== ENCOUNTER → 2023-12-08 | Outpatient (CLI) | payer OTHER, SELFPAY ==
[2023-12-08 14:19] LABS: Protein, Urine (Random) < 6.0 mg/dL (<11.9)
[2023-12-08 14:19] LABS: Absolute Lymphocyte Count 1.71 X10^3/uL (0.83-4.51); Absolute Neutrophil Count 9.5 X10^3/uL (2.0-7.7); Basophil# 0.03 X10^3/uL; Basophil% 0.2 % (0-1); Eosinophil# 0.02 X10^3/uL; Eosinophils% 0.2 % (0-5); Hematocrit 37.9 % (37-47); Hemoglobin 12.1 g/dL (12.0-15.0); Lymphocyte # 1.71 X10^3/ul (0.83-4.51); Lymphocyte % 14.1 % (19-41); Mean Corp Hgb Conc 31.9 g/dL (32-36); Mean Corpuscular Hgb 27.9 pg (27.0-32.0); Mean Corpuscular Volume 87.3 fL (81-99); Mean Platelet Vol. 11.3 fl (6.2-12.0); Monocyte# 0.77 X10^3/uL; Monocyte% 6.3 % (0-10); NRBC Flagged by Analyzer 0 % (0-5); Neutrophil # 9.53 X10^3/uL (2.7-7.7); Neutrophil % 78.6 % (47-70); Platelet Count 270 K/mm3 (150-450); RBC Distribution Width CV 13.8 % (11.6-14.6); Red Blood Count 4.34 M/mm3 (4.2-5.4); White Blood Count 12.1 K/mm3 (4.4-11.0)
[2023-12-08 14:59] LABS: ALB/GLOB Ratio 0.6 RATIO (0.9-2.4); AST(SGOT) 12 U/L (15-37); Alanine Aminotransfer ALT/SGPT 17 U/L (13-56); Albumin, Serum 2.7 g/dL (3.2-5.0); Alkaline Phosphatase 353 U/L (45-117); Anion Gap 8 (5-15); BUN 9 mg/dL (7-18); BUN/Creat Ratio 16.6 RATIO (10-20); Calcium,Total 9.6 mg/dL (8.5-10.1); Chloride 105 mmol/L (98-107); Creatinine, Serum 0.54 mg/dL (0.55-1.02); EST Glomerular Filtration Rate 137 mL/min (>60); Est Glom Filt Rate - Afr Amer 166 mL/min (>60); Globulin 4.4 g/dL (2.2-4.2); Glucose 80 mg/dL (74-106); Protein, Total 7.1 g/dL (6.4-8.2); Sodium Level 137 mmol/L (136-145)
== END | disposition home or self-care (01) ==
LOC: LABSPEC 13:52 → LAB 13:55
PROVIDERS: PCP Family Medicine; Referring Provider Advanced Practice Midwife; Visit Provider Advanced Practice Midwife
DX: O09.92 Supervision of high risk pregnancy, unspecified, second trimester (principal); Z3A.00 Weeks of gestation of pregnancy not specified; O16.9 Unspecified maternal hypertension, unspecified trimester
CPT/HCPCS: 36415; 80053; 82570; 84156; 85025; 87081

== ENCOUNTER 2023-12-14 11:48 | Inpatient (IN) | payer OTHER, SELFPAY ==
[2023-12-14] VITALS (27 sets, daily range): BP systolic 124–203; BP diastolic 63–115; PULSE 54–96; RESP 16–18; TEMP 36.1–37.1; O2SAT 100; BMI 36.0
[2023-12-14] MEDS: NIFEdipine 10 MG Capsule PO (11:39)
[2023-12-14 12:48] LABS: Protein:Creat Ratio 278 mg/g CRE (0-200)
[2023-12-14 12:54] LABS: Absolute Lymphocyte Count 1.97 X10^3/uL (0.83-4.51); Absolute Neutrophil Count 7.3 X10^3/uL (2.0-7.7); Basophil# 0.02 X10^3/uL; Basophil% 0.2 % (0-1); Eosinophil# 0.04 X10^3/uL; Eosinophils% 0.4 % (0-5); Hematocrit 38.2 % (37-47); Hemoglobin 12.5 g/dL (12.0-15.0); Lymphocyte # 1.97 X10^3/ul (0.83-4.51); Lymphocyte % 19.6 % (19-41); Mean Corp Hgb Conc 32.7 g/dL (32-36); Mean Corpuscular Hgb 28.7 pg (27.0-32.0); Mean Corpuscular Volume 87.8 fL (81-99); Mean Platelet Vol. 11.8 fl (6.2-12.0); Monocyte# 0.69 X10^3/uL; Monocyte% 6.9 % (0-10); NRBC Flagged by Analyzer 0 % (0-5); Neutrophil # 7.26 X10^3/uL (2.7-7.7); Neutrophil % 72.1 % (47-70); Platelet Count 235 K/mm3 (150-450); RBC Distribution Width CV 13.9 % (11.6-14.6); RBC Distribution Width SD 44.2 fl (35.1-43.9); Red Blood Count 4.35 M/mm3 (4.2-5.4); White Blood Count 10.1 K/mm3 (4.4-11.0)
--- NOTE | 2023-12-14 13:02 | HP.PCM.OB_ITS ---
HPI - General General Date of Admission: 12/14/23 HPI Narrative VEL BURROUGHS, is a 33 y/o @ 37 weeks 4 days who presents to L&D initially for low heart rate in ultrasound. When she was placed on the monitor the baby showed an immediate variable deceleration lasting almost 1 minute down to the 70's. Maternal pulse was noted in the 50's with a blood pressure in severe range on multiple blood pressure checks. The range was 180's/ 109 to as high as 203/87. The decision was made to admit to L&D for induction of labor and start antihypertensive mendications. The patient is a surrogate this . After one dose of procardia 10 mg po that was given stat, her blood pressure came back down to the 140's/70's. The nurse checked her cervix and reported that she is 3 cm dilated. The patient has decided that she will not want an epidural for the labor process. Maternal Data Information VALERIA Calculator Estimated Delivery Date Method Current WG Current Estimate 12/31/23 Conception 37w 4d PFSH PFSH Medical History Gestational diabetes Seasonal allergies Hip dysplasia, congenital Well woman exam Bartholin's gland abscess COVID-19 Kidney stones Renal calculus, left Right ureteral calculus Term Term delivered False labor at or after 37 completed weeks of gestation False labor before 37 completed weeks of gestation, third trimester Home Medications ?Medication ?Instructions ?Recorded ?Last Taken ?Type multivit-min no.71-iron fum 28 cap PO 05/25/23 Unknown History mg-folate no.1 1 mg-dha 300 mg capsule ([facility]) Allergy/AdvReac Type Severity Reaction Status Date / Time No Known Allergies Allergy Verified 12/08/23 13:08 Family History Father Oral cancer Grandfather Cancer Diabetes Son ADHD (attention deficit hyperactivity disorder) Autism Daughter ADHD (attention deficit hyperactivity disorder) Son ADHD (attention deficit hyperactivity disorder) Sister Congenital dysplasia of hip Surgical History Status post hip surgery S/P tonsillectomy Social History adopted: No household members: spouse and children number of children: 3 current occupational status: unemployed current occupation: [employer] current occupational exposures/hazards: No pets and animals: Yes (not managing litterbox) pets and animals: cat(s) history of recent travel: No sexually active: Yes Smoking Status: Never smoker alcohol intake: never substance use type: does not use well-balanced diet: daily or most days caffeine: No eating out: 1-3 times/week during the past year weight has: increased > 10 lbs what type of physical activity do you participate in: aerobics and weight training frequency: 1-2 times per week duration: 15-30 minutes/day shae/pentecostalism: Roman Catholic seatbelt use: always do you feel safe at home: Yes additional social history: - Rodrigue History 4 Elective abortions Hx Para 3 Spontaneous abortions Hx # Term Pregnancies Ectopic pregnancies Hx # Pregnancies Multiple births # of living children 3 Past Pregnancies Del. Date Name GA/Weeks Outcome Route Bth Weight Gen Labor Lgth Anes th esia Del Locatn Provider FOB 03/06/14 Yarely 38 live - full term 7lbs 7.7oz Female epidural [facility] Dr. Jose Husain 09/30/15 Vance 36 live - 6lbs 2oz Male epid ural [facility] Dr. Jose Husain 10/26/17 Eder 39 live - full term 11lbs 6oz Male n one [facility] Dr. Jose Husain Delivery Date: 03/06/14 Last Updated by: Diana Wilburn Gestational diabetes Delivery Date: 09/30/15 Last Updated by: Diana Wilburn Gestational diabetes Delivery Date: 10/26/17 Last Updated by: Diana Wilburn No issues Visit Details Expected Delivery Route/Plan Labor Preferences- labor support person: parents- abhinav. surrogates Rodrigue. labor intervention preferences: minimal pain management options preferred: minimal intervention cut cord/dad catch: [] : pumping PP control planned: [] discussed possible routes of delivery and associated risks: [] special requests: [] Plans Covid status: [] Flu vaccine: declines Tdap vaccine: declines Rhogam: declines LARC form signed: [] movement and labor precautions reviewed. Problem list reviewed and updated with the most current plan of care details and appropriate orders placed. Relevant counseling for the gestational age provided. Continue routine care and follow up unless otherwise noted in visit notes/problem list details OB Flowsheet Initial Weight: Not Recorded Date -?-?-?-?-?-?-?-?-?-?-?-?- EGA Weight BP Urine Prot -?-?-?-?-?-?-?-?-?-?-?-?- Glucose FHR FuHt Pres Dilation -?-?-?-?-?-?-?-?-?-?-?-?- Effaced St Visit Note 05/28/23 -?-?-?-?-?-?-?-?-?-?-?-?- 9w 0d 214 lb 6 oz 152/71 -?-?-?-?--?-?-?-?-?-?-?-?- 186 -?-?-?-?-?-?-?-?-?-?-?-?- KW- RGI transfer . CRL cons with dates. Desires NIPT. doing well. 06/23/23 -?-?-?-?-?-?-?-?-?-?-?-?- 12w 5d 207 lb 131/86 Negative -?-?-?-?-?-?-?-?-?-?-?-?- Negative 160 -?-?-?-?-?-?-?-?-?-?-?-?- JV- nausea is on and off. normal NIPT girl! no complaints. pt is surrogate 07/19/23 -?-?-?-?-?-?-?-?-?-?-?-?- 16w 3d 5 lb 4.5 oz 130/82 Nega tive -?-?-?-?-?-?-?-?-?-?-?-?- Negative 164 -?-?-?-?-?-?-?-?-?-?-?-?- MH-No VB. Hugh medeiros. Denies concerns 08/20/23 -?-?-?-?-?-?-?-?-?-?-?-?- 21w 0d 200 lb 4 oz 120/78 Nega tive -?-?-?--?-?-?-?-?-?-?-?-?- Negative 155 -?-?-?-?-?-?-?-?-?-?-?-?- JV- pt is seeing dr. alba for glucose monitoring. She is telling her that she is getting close to needing medical therapy. Has placenta previa- rpt scan at 28 weeks. no complaints today. 09/17/23 -?-?-?-?-?-?-?-?-?-?-?-?- 25w 0d 202 lb 4 oz 129/79 Nega tive -?-?-?-?-?--?-?-?-?-?-?-?- Negative 150 25 -?-?-?-?-?-?-?-?-?-?-?-?- LC-no vb/ctx/lof . good fm. glucose pending. LC-no vb/ctx/lof. good fm. g lucose dietary controlled. 10/01/23 -?-?-?-?-?-?-?-?-?-?-?-?- 27w 0d 202 lb Negative -?-?-?-?-?-?-?-?-?-?-?-?- Negative 153 27 -?-?-?-?-?-?-?-?-?-?-?-?- LC- no vb/ctx/lo f. good fm. glucose well controlled. 10/18/23 -?-?-?-?-?-?-?-?-?-?-?-?- 29w 3d 203 lb 134/85 Negative -?-?-?-?-?-?-?-?-?-?-?-?- Negative 144 29 -?-?-?-?-?-?-?-?-?-?-?-?- JV- glucose is s till well controlled without medications. previa is resolved. 11/08/23 -?-?-?-?-?-?-?-?-?-?-?-?- 32w 3d 206 lb 124/86 Negative -?-?-?-?-?-?-?-?-?-?-?-?- Negative 135 31 -?-?-?-?-?-?-?-?-?-?-?-?- SM- no vb lof go od fm no regular ctx. 11/24/23 -?-?-?-?-?-?-?-?-?-?-?-?- 34w 5d 208 lb 124/89 Negative -?-?-?-?-?-?-?-?-?-?-?-?- Negative 160 35 -?-?-?-?-?-?-?-?-?-?-?-?- KW- no vb/lof/ct x. good fm. glucose well controlled. LARC today 12/08/23 -?-?-?-?-?-?-?-?-?-?-?-?- 36w 5d 212 lb 157/102 148/92 Negative -?-?-?-?-?-?-?-?-?-?-?-?- Negative 120 37 Cephalic 3 -?-?-?-?-?-?-?-?-?-?-?-?- 80 -2 KW- no vb/ lof. some regular ctx at times. no ZALDIVAR, dizziness, BV. Reactive NST KW- no vb/lof. some regular ctx at times. no ZALDIVAR, dizziness, BV. Reactive NST. PRE e labs today ROS Constitutional Constitutional: Denies change in weight, fatigue, fever(s), headache(s), poor appetite or weakness Eyes Eyes: Denies blurry vision, change in vision, seeing flashes or spots in vision ENT HEENT: Denies dizziness, headache(s), loss taste/smell or sore throat Cardiovascular Cardiovascular: Denies chest pain, dizziness, dyspnea, irregular heart rhythm, leg edema, palpitations, rapid heart rate or vomiting Respiratory/Chest Respiratory/Chest: Denies chest tightness, cough, dyspnea or breast pain Gastrointestinal Gastrointestinal: Denies abdominal pain, anorexia, constipation, cramping, diarrhea, hemorrhoids, vomiting or weight changes Genitourinary Genitourinary: Denies dysuria, flank pain, genital lesions, genital pain, urinary frequency or urinary urgency Musculoskeletal Musculoskeletal: Denies back pain, difficulty walking, joint pain, limited range of motion, muscle cramps or numbness Integumentary Integumentary: Denies lesions or unusual bruising Neurologic Neurologic: Denies abnormal movements, abnormal speech, dizziness, numbness, seizure-like activity or syncope Psychiatric Psychiatric: Denies anxiety, behavioral changes, change in appetite, change in libido, cognitive impairment, confusion, depression, difficulty concentrating, hallucinations or suicidal thoughts Endocrine Endocrinology: Denies excessive sweating, polydipsia or polyuria Hematologic/Lymphatic Hematologic/Lymphatic: Denies easy bleeding, easy bruising or lymphadenopathy Allergic/Immunologic Allergic/Immunologic: Denies itchy eyes, lip swelling, seasonal rhinorrhea, rhinitis, throat swelling, tongue swelling, eczemia, wheezing or asthma Vital Signs Vital Signs Vital Signs: 12/14/23 10:59 12/14/23 10:59 12/14/23 11:04 Temperature 98.0 F Temperature Source Tympanic Pulse Rate Blood Pressure 190/109 H BP Systolic 190 BP Diastolic 109 12/14/23 11:04 12/14/23 11:13 12/14/23 11:13 Temperature Temperature Source Pulse Rate 61 57 L Blood Pressure 184/91 H BP Systolic 184 BP Diastolic 91 12/14/23 11:17 12/14/23 11:17 12/14/23 11:23 Temperature Temperature Source Pulse Rate 60 Blood Pressure 170/96 H 188/115 H BP Systolic 170 188 BP Diastolic 96 115 12/14/23 11:23 12/14/23 11:28 12/14/23 11:28 Temperature Temperature Source Pulse Rate 71 54 L Blood Pressure 203/87 H BP Systolic 203 BP Diastolic 87 12/14/23 11:55 12/14/23 11:55 12/14/23 12:21 Temperature Temperature Source Pulse Rate 59 L Blood Pressure 143/74 H 140/83 H BP Systolic 143 140 BP Diastolic 74 83 12/14/23 12:21 12/14/23 12:37 12/14/23 12:37 Temperature Temperature Source Pulse Rate 67 76 Blood Pressure 124/66 H BP Systolic 124 BP Diastolic 66 12/14/23 12:52 12/14/23 12:52 Temperature Temperature Source Pulse Rate 80 Blood Pressure 127/65 H BP Systolic 127 BP Diastolic 65 Weight Weight: 213 lb 3.2 oz Body Mass Index (BMI) 36.0 Physical Exam Const alert, oriented x3, no apparent distress and healthy appearing General Appearance: cooperative; Negative for anxious HEENT normocephalic Face and Sinus: normal facial exam Eyes EOMs intact bilaterally and no scleral icterus General Eye: normal appearance of both eyes Neck full ROM and supple Lymph Lymphatic: no lymphadenopathy noted Chest Chest: abnormal inspection of the chest Resp normal respiratory effort Effort and Inspection: able to speak in complete sentences Cardio regular rate GI soft to palpation and non-tender Inspection: gravid Palpation: soft; Negative for tender Back/Spine no CVA tenderness Extremity normal to inspection, full ROM and no clubbing, cyanosis or edema General Extremity: Negative for calf tenderness or edema Skin Lesions: no lesions Rashes: no rashes Psych mental status grossly normal Labs Labs Labs: Blood Type A POSITIVE Antibody Screen NEGATIVE Hct 38.2 % (37-47) Hgb 12.5 g/dL (12.0-15.0) Syphilis Total Ab Non-reactive Rubella IgG Antibody Reactive (Nonreactive) Hep Bs Antigen Non-Reactive (Nonreactive) Hepatitis C Antibody Non-Reactive (Nonreactive) Hepatitis C Ab (EIA) <0.1 s/co ratio (0.0-0.9) Chlamydia DNA (PHILL) Negative (Negative) N.gonorrhoeae DNA (PHILL) Negative (Negative) HIV 1&2 Antibody Non-Reactive (Nonreactive) Glucose 1 Hr 50 gm 116 mg/dL (70-140) Gest Glucose Tolerance MG/DL Group B Strep DNA Negative (Negative) Rhogam given: No Assessment & Plan (1) Hypertension affecting in third trimester: (2) : QUALIFIERS: Weeks of gestation: 36 weeks Qualified Code(s): Z3A.36 - 36 weeks gestation of COMMENT: gbs neg (3) Obesity affecting : COMMENT: nob a1c 5.7. (4) Gestational diabetes: QUALIFIERS: Gestational diabetes mellitus control: diet-controlled Trimester: second trimester Qualified Code(s): O24.410 - Gestational diabetes mellitus in , diet controlled COMMENT: QID testing-all within range. growth us at 32 and 36 weeks (5) Surrogate : COMMENT: Gisela + Rj- Vel is Rj's sister (6) Family history of autism: COMMENT: son Vance (7) resulting from in-vitro fertilization: COMMENT: weekly NSTs from 36 on delivery at 39/ nl growth q 4 weeks. echo at 22-24 weeks , normal transfer date 04/14/23 of 5 day old embryo(surrogate for sister in law) (8) Hx of gestational diabetes in prior , currently : COMMENT: A1C elevated, referral to endo, glucose testing fasting & 2 hr post meals (9) Supervision of high-risk : QUALIFIERS: Trimester: second trimester Qualified Code(s): O09.92 - Supervision of high risk , unspecified, second trimester COMMENT: PRR , VALERIA [birth year], girl,PC Vance Pritchett, Eder Rodrigue.( FOB:Rj, MOB: Gisela) (10) in person acting as gestational surrogate: COMMENT: nl anatomy, low risk, discussed carrier testing- accepts (11) PCOS (polycystic ovarian syndrome): PLAN: Plan Patient presents IOL, plan management for with pitocin/AROM. Pain management: none . GBS negative. PIH labs are pending. Management of any complications: [none] I have reviewed the [facility] and made any clinically relevant updates.
[2023-12-14] MEDS: Oxytocin 15 Units/NS 250ml 15 UNITS/250 ML IV.SOLN 2 UNITS IV (13:05)
[2023-12-14] MEDS: Lactated Ringers 1,000 ML 50 ML IV (13:05)
[2023-12-14 13:09] LABS: AST(SGOT) 20 U/L (15-37); Alanine Aminotransfer ALT/SGPT 18 U/L (13-56); Creatinine, Serum 0.48 mg/dL (0.55-1.02); EST Glomerular Filtration Rate 156 mL/min (>60); Est Glom Filt Rate - Afr Amer 188 mL/min (>60); Estimated Creatinine Clearance 188.17 ml/min
[2023-12-14 13:36] LABS: Syphilis Antibodies Non-reactive
[2023-12-14 15:20] LABS: Bedside Glucose 68 mg/dL (74-106)
[2023-12-14] MEDS: Oxytocin 15 Units/NS 250ml 15 UNITS/250 ML IV.SOLN 334 UNITS IV (19:19)
--- NOTE | 2023-12-14 19:23 | OP.PCM_ITS ---
Assessment & Plan (1) Hypertension affecting in third trimester: (2) : QUALIFIERS: Weeks of gestation: 36 weeks Qualified Code(s): Z3A.36 - 36 weeks gestation of COMMENT: gbs neg (3) Obesity affecting : COMMENT: nob a1c 5.7. (4) Gestational diabetes: QUALIFIERS: Gestational diabetes mellitus control: diet-controlled Trimester: second trimester Qualified Code(s): O24.410 - Gestational diabetes mellitus in , diet controlled COMMENT: QID testing-all within range. growth us at 32 and 36 weeks (5) Surrogate : COMMENT: Gisela + Rj- Cydney is Rj's sister (6) Family history of autism: COMMENT: son Vance (7) resulting from in-vitro fertilization: COMMENT: weekly NSTs from 36 on delivery at 39/ nl growth q 4 weeks. echo at 22-24 weeks , normal transfer date 04/14/23 of 5 day old embryo(surrogate for sister in law) (8) Hx of gestational diabetes in prior , currently : COMMENT: A1C elevated, referral to endo, glucose testing fasting & 2 hr post meals (9) Supervision of high-risk : QUALIFIERS: Trimester: second trimester Qualified Code(s): O09.92 - Supervision of high risk , unspecified, second trimester COMMENT: PRR , VALERIA 01/[birth year], girl,PC Yarely, Vance, Eder Rodrigue.( FOB:Rj, MOB: Gisela) (10) in person acting as gestational surrogate: COMMENT: anatomy, low risk, discussed carrier testing- accepts (11) PCOS (polycystic ovarian syndrome): Maternal Data Information VALERIA Calculator Estimated Delivery Date Method Current WG Current Estimate 12/31/23 Conception 37w 4d Gestational age: 37 weeks 4 days Vaginal Delivery Operative Information Date of Procedure: 12/14/23 Pre-Operative Diagnosis: 37 weeks 4 days, gestational hypertension, IVF (surrogate ) Post-Operative Diagnosis: 37 weeks 4 days, gestational hypertension, IVF (surrogate ) Surgery / Procedure Performed: Spontaneous Vaginal Delivery Type of Anesthesia: None Estimated Blood Loss: 50cc Time of Delivery: 19:14 Findings Description of Procedure: Patient began pushing and delivered the head in the BEATRICE presentation. The head was delivered atraumatically. The anterior and posterior shoulders delivered without complication followed by the rest of the and the was placed on the maternal abdomen. Delayed cord clamping was employed for approximately 60 seconds. Cord was clamped and cut and gentle traction was applied to the cord and the placenta delivered spontaneously immediately following it was noted to be intact with three-vessel cord. The perineum and vagina were inspected and noted to be intact. EBL was 100 cc. Patient and tolerated delivery well. Presentation: Vertex Amniotic Membrane Rupture Type: Spontaneous Amniotic Fluid Description: Clear Placental Delivery Description: Spontaneous Placenta Disposition: [facility] Cord Vessel Description: 3 Vessels Cord Entanglement: None A Gender: Female (1 minute): 8 (5 minute): 9 Delayed Cord Clamping: Yes Post Vaginal Delivery Medications Given After Delivery: IV Pitocin Episiotomy Description: None Laceration: None Complication Complications: None Multi Select Codes Urinary/Genital Urinary/Genital CPT Codes: 58682 Vaginal Delivery [facility]
--- NOTE | 2023-12-14 19:25 | PCM.DC ---
Discharge Instructions Diet Discharge Diet: No restrictions Activity Discharge Activity: Return to Normal Activity, May Not Drive (while taking narcotic pain medications.) and May Shower May resume sexual activity in: 4-6 weeks Dressing / Incision Call your doctor if your incision/area has: Continuous Slow Oozing, Sudden Increased Bleeding, Increased Pain/ Swelling, Increased Redness and Foul Smelling Discharge Follow Up Care Please Follow Up With: Mariel Neumann, DO When: Call [phone] to make an appointment with your doctor in 6 weeks. If you had elevated blood pressure or 4th degree laceration, you will need to be seen in 2 weeks. Test Results: Test results from this visit will be discussed in further detail at your follow-up appointment, if applicable. Discharge Plan Admission Admit Date/Time: 12/14/23 11:48 Attending Provider: Mariel Neumann Primary Care Provider: Diana Canela Discharge Orders/Prescriptions Prescriptions: No Action [facility] 28-1-300 mg capsule PO Referrals / Follow Up: Diana Canela MD [Primary Care Provider] -
[2023-12-14] MEDS: Oxytocin 15 Units/NS 250ml 15 UNITS/250 ML IV.SOLN 83 UNITS IV (19:51)
[2023-12-14 20:42] LABS: Bedside Glucose 83 mg/dL (74-106)
[2023-12-15 00:22] VITALS: BP 142/86; PULSE 62; RESP 16; TEMP 36.8; O2SAT 98
[2023-12-15 04:40] VITALS: BP 98/67; PULSE 65; RESP 16; O2SAT 98
[2023-12-15 05:07] LABS: Bedside Glucose 81 mg/dL (74-106)
--- NOTE | 2023-12-15 07:49 | PN.OBGYN_ITS ---
Subjective Subjective Patient doing well without complaints. Tolerating PO. Ambulating and voiding without difficulty. Denies chest pain, shortness of breath, calf pain/swelling, fevers, chills, lightheadedness. Surrogate for brother/sister in law. Pumping. Objective Data Objective Data Vital Signs: Vital Signs Temp Pulse Resp BP Pulse Ox O2 Del Method 98.2 F 65 16 98/67 98 Room Air 12/15/23 00:22 12/15/23 04:40 12/15/23 04:40 12/15/23 04:40 12/15/23 04:40 12/15/23 04:40 Oxygen Delivery Method Room Air Weight: 213 lb 3.2 oz Body Mass Index (BMI) 36.0 Intake & Output: Intake and Output for Last 24 Hours 12/13/23 12/14/23 12/15/23 23:59 23:59 23:59 Intake Total 833.67 / 833.67 Output Total 350 / 350 250 / 250 Balance 483.67 / 483.67 -250 / -250 Lab / Micro Data 12/14/23 11:45 12/14/23 11:45 Labs: Laboratory Results - last 24 hr 12/14/23 11:45: WBC 10.1, RBC 4.35, Hgb 12.5, Hct 38.2, MCV 87.8, MCH 28.7, MCHC 32.7, RDW Std Deviation 44.2 H, RDW Coeff of Sakina 13.9, Plt Count 235, MPV 11.8, Immature Gran % (Auto) 0.800, Neut % (Auto) 72.1 H, Lymph % (Auto) 19.6, [place] % (Auto) 6.9, Eos % (Auto) 0.4, Baso % (Auto) 0.2, Absolute Neuts (auto) 7.3, Absolute Lymphs (auto) 1.97, Nucleated RBC % 0, Creatinine 0.48 L, Estim Creat Clear Calc 188.17, Est GFR (MDRD) Af Amer 188, Est GFR (MDRD) Non-Af 156, Uric Acid 4.0, AST 20, ALT 18, Blood Type A POSITIVE, Antibody Screen NEGATIVE 12/14/23 12:05: U Random Total Protein 12.0 H, Urine Creatinine 43.20, P rotein/Creatinin Ratio 278 H, Syphilis Total Ab Non-reactive 12/14/23 14:46: POC Glucose 68 L 12/14/23 19:36: POC Glucose 83 12/14/23 : PT Cancelled, INR Cancelled, APTT Cancelled 12/15/23 04:45: POC Glucose 81 Physical Exam Const alert and oriented x3 HEENT normocephalic Eyes PERRL Neck full ROM Resp normal respiratory effort GI soft to palpation GI Narrative: FF below U Assessment & Plan (1) Spontaneous vaginal delivery: COMMENT: 12/14/23 JV. HTN. GDM. Girl Maryuri:patient surrogate for brother Rj, Gisela (2) Family history of autism: COMMENT: son Vance (3) Gestational diabetes: QUALIFIERS: Gestational diabetes mellitus control: diet-controlled Trimester: second trimester Qualified Code(s): O24.410 - Gestational diabetes mellitus in , diet controlled COMMENT: stable pp (4) Hypertension affecting in third trimester: COMMENT: stable pp PLAN: Plan s/p PPD # 1 1. routine post delivery care 2. pumping for bio parents 3. rh positive 4. rubella immune 5. home today
[2023-12-15 08:00] VITALS: BP 136/83; PULSE 73; RESP 16; TEMP 36.7; O2SAT 97
[2023-12-15 08:10] VITALS: BP 135/96; PULSE 73; RESP 16; TEMP 36.7; O2SAT 99
[2023-12-15 13:00] VITALS: BP 136/83; PULSE 73; RESP 16; TEMP 36.7; O2SAT 97
--- NOTE | 2023-12-20 13:37 | NURSING ---
Follow up phone call done. States she is doing well, no pain, minimal bleeding, no headaches, no visual disturbances or no baby blues. Continues to pump breast milk for . Struggling with clogged ducts in armpit area. Discussed breast gymnastics, ice packs, and ibuprofen to help with engorgement. Instructed that if it doesn't help with engorgement to call back in a few days, states understanding. Cydney states that she understood her discharge instructions, and was satisfied with her care.
== END 2023-12-15 13:25 | disposition home or self-care (01) | DRG 807 ==
LOC: WPOUT 11:48 → WP 11:49
PROVIDERS: Admitting Provider Obstetrics & Gynecology; PCP Family Medicine; Referring Provider Obstetrics & Gynecology; Visit Provider Obstetrics & Gynecology
DX: O76 Abnormality in fetal heart rate and rhythm complicating labor and delivery (principal); Z37.0 Single live birth; O24.420 Gestational diabetes mellitus in childbirth, diet controlled; O13.4 Gestational [pregnancy-induced] hypertension without significant proteinuria, complicating childbirth; O99.214 Obesity complicating childbirth; Z3A.37 37 weeks gestation of pregnancy
CPT/HCPCS: 59025; 59050; 82565; 82570; 82962; 84156; 84450; 84460; 84550; 85025; 85027; 86780; 86850; 86900; 86901; 99221; J7120; G0378